=== PATIENT | female | born 1975 | race African-American/Black ===

== ENCOUNTER 2017-06-16 00:26 | Emergency (ER) | payer OTHER ==
[2017-06-16] MEDS ORDERED: Ibuprofen 800 MG TAB ONE (01:54)
[2017-06-16] MEDS ORDERED: Acetaminophen 500 MG TAB ONE (03:19)
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
== END 2017-06-16 03:23 | disposition home or self-care (01) ==
LOC: ERS 00:26
DX: T76.11XA Adult physical abuse, suspected, initial encounter (principal); S82.832A Other fracture of upper and lower end of left fibula, initial encounter for closed fracture; I10 Essential (primary) hypertension; M32.9 Systemic lupus erythematosus, unspecified; M06.9 Rheumatoid arthritis, unspecified; F31.9 Bipolar disorder, unspecified; Z79.899 Other long term (current) drug therapy; Y04.2XXA Assault by strike against or bumped into by another person, initial encounter
CPT/HCPCS: 27786; 71045

== ENCOUNTER 2017-06-23 16:32 | Inpatient (IN) | payer OTHER ==
[~2017-06-23 16:32] MED LIST: ISOVUE-370 76%-LOCM 1 ML ONE
[2017-06-23] MEDS ORDERED: Morphine 4 MG/ML VIAL ONE ×2 (17:57→22:39)
[2017-06-23] MEDS ORDERED: Ondansetron HCl/PF 4 MG/2 ML Vial ONE (18:14)
[2017-06-23 18:25] LABS: #Eosinphils 0.1 thou/uL (0.0-0.7); #Lymphocytes 1.1 thou/uL (1.20-3.40); #Monocytes 0.5 thou/uL (0.11-0.59); #Neutrophils 9.5 thou/uL (1.40-6.50); %Basophils 0.4 % (0.0-1.0); %Eosinophils 0.6 % (0.0-10.0); %Lymphocytes 9.8 % (21.0-51.0); %Monocytes 4.4 % (0.0-10.0); %Neutrophils 84.7 % (42.0-75.0); Hemoglobin 11.8 g/dL (12.0-16.0); Mean Corpuscular HGB CONC 33.9 g/dL (32.0-36.0); Mean Corpuscular Hemoglobin 30.5 pg (27.0-31.0); Mean Corpuscular Volume 89.9 fl (81.0-99.0); Mean Platelet Volume 7.4 fL (7.4-10.4); Platelet Count 335 thou/uL (130-400); RBC Distribution Width 12.4 % (11.5-14.5); Red Blood Cell (RBC) Count 3.87 mill/uL (4.20-5.40); White Blood Cell (WBC) Count 11.2 thou/uL (4.8-10.8)
--- NOTE | 2017-06-23 18:34 | RAD ---
PORTABLE CHEST: 06/23/17 HISTORY: Chest pain. COMPARISON: 06/16/17. Some possible patchy infiltrate in the right lung base on this current study. This could represent at electasis. The lungs otherwise appears clear and unchanged. IMPRESSION: Question right lower lobe atelectasis or infiltrate. POS: [facility]
--- NOTE | 2017-06-23 18:40 | RAD ---
RIGHT FOOT: 06/23/17 Three views. HISTORY: Toe pain. Injury. Tarsals appear unremarkable. There is cortical thickening involving the shaft of the third metatarsal consistent with an old healed fracture. No acute metatarsal fracture identified. Phalanges appear in tact with no evidence of acute fracture. IMPRESSION: No acute fracture identified. POS: [facility]
[2017-06-23 18:47] LABS: ALT (SGPT) 21 U/L (8-55); AST (SGOT) 38 U/L (5-34); Alkaline Phosphatase 86 U/L (40-150); Anion Gap 13 mmol/L (10-20); BUN (Urea Nitrogen) 8 mg/dL (7.0-18.7); Bilirubin, Total 0.4 mg/dL (0.2-1.2); CK (CPK) 614 U/L (29-168); Calc. Creatinine Clearance 0 mL/min (70-130); Calcium 9.5 mg/dL (7.8-10.44); Carbon Dioxide 24 mmol/L (22-29); Chloride 98 mmol/L (98-107); Estimated GFR-MDRD Greater than 90; Globulin 3.7 g/dL (2.4-3.5); Glucose 107 mg/dL (70-105); Potassium 3.8 mmol/L (3.5-5.1); Protein, Total 7.7 g/dL (6.0-8.3); Sodium 131 mmol/L (136-145)
[2017-06-23 18:52] LABS: CKMB 4.9 ng/mL (0-6.6); Troponin I Less than 0.010 ng/mL (< 0.028)
[2017-06-23 18:59] LABS: Bilirubin Negative (Negative); Blood, Urine Small (Negative); Clarity CLOUDY (Clear); Glucose, Urine (Dipstick) Negative (Negative); Leukocyte Negative (Negative); Nitrite Negative (Negative); Protein, Urine (Dipstick) Negative (Neg-Trace); Specific Gravity, Urine 1.015 (1.002-1.036); pH, Urine 6.5 (5.0-9.0)
[2017-06-23 19:01] LABS: Bacteria/HPF None Seen HPF (None Seen); Hyaline Casts/LPF 0-3 HYALINE CAST LPF (0-3 Hyaline); RBC/HPF 0-3 HPF (0-3); Squamous Epithelial 0-3 HPF (0-3); WBC/HPF 0-3 HPF (0-3)
[2017-06-23] MEDS ORDERED: Ketorolac Tromethamine 30 MG/ML VIAL ONE (19:51)
[2017-06-23 20:02] LABS: Pregnancy Test - Urine (BHCG) Negative (Negative); Pregu Control Background? CLEAR/WHITE (CLR/WHITE); Pregu Control Bar Appear? YES (CONTROL BAR); Specific Gravity 1.015 (1.002-1.036)
--- NOTE | 2017-06-23 20:59 | CT ---
CT PULMONARY ANGIO CHEST WITH CONTRAST: 06/23/17 Multiple axial tomograms obtained through chest with IV enhancement with pulmonary angio protocol. Mu ltiplanar reconstructions with 3D postprocessing. HISTORY: Chest pain. FINDINGS: Pulmonary arteries show adequate enhancement. There is evidence of a small linear filling defect in a proximal left lower lobe pulmonary artery as the left descending pulmonary artery branches inferiorl y. I cannot exclude small pulmonary embolus at this site. No other evidence of pulmonary embolus identified. Review of the lung lynn reveals patchy alveolar infiltrate in the posterior right lower lobe sugges ting patchy pneumonia. There is also some early infiltrative changes in the left lower lobe. IMPRESSION: 1. Evidence of a small pulmonary embolus in a proximal left lower lobe pulmonary artery. 2. Patchy infiltrate suggesting pneumonia in the posterior right lower lobe. Possibly early infi ltrate in the left lower lobe. Findings discussed with Dr. Man. POS: [facility]
[2017-06-23] MEDS ORDERED: Azithromycin 500 MG VIAL ONE (21:26)
[2017-06-23] MEDS ORDERED: Enoxaparin Sodium 100 MG/ML SYRINGE ONE (21:26)
[2017-06-23] MEDS ORDERED: cefTRIAXone\\ROCEPHIN 2 GM in Sodium Chloride 0.9% 100 ML IVPB SCH (23:00)
[2017-06-24] MEDS ORDERED: Acetaminophen 325 MG TAB PO PRN (00:57)
[2017-06-24] MEDS ORDERED: Senokot 8.6 MG TAB PO PRN (00:57)
[2017-06-24] MEDS ORDERED: Docusate 100 MG CAP PO PRN (00:57)
[2017-06-24] MEDS ORDERED: Sodium Chloride 0.9% 1,000 ML IV SCH (01:15)
[2017-06-24] MEDS ORDERED: Sodium Chloride 0.45% 1,000 ML IV SCH (01:15)
[2017-06-24 01:39] VITALS: BMI 48.2
[2017-06-24] MEDS ORDERED: Morphine 5 MG/ML SYRINGE SLOW IVP PRN (01:58)
[2017-06-24] MEDS: Sodium Chloride 0.9% 1,000 ML IV SCH ×2 (02:07→11:22)
--- NOTE | 2017-06-24 02:47 | PDOC.FPRHP ---
- History of Present Illness Chief Complaint: Chest pain History of Present Illness: 42 yo f with a pmhx of htn, hld presents with sharp substernal and left sided chest pain. She states that it is constant and 9/10 in nature. She endorses associated nausea. States she has this chest pain while walking to her dr's apt yesterday afternoon. She also had this pain during her doctor's apt and was sent via EMS to the hospital. The pain does not radiate. It is substernal and left sided in nature. No associated diaphoresis. She also endorses a cough with productive yellow sputum and difficulty breathing. She endorses feeling feverish at home but didn't check her temp. She was given aspirin by EMS. ED Course: She was given: ceftriaxone 1mg, a total of 12mg of morphine, lovenox 1mg/kg, azithromicin 500mg, zofran 4mg, and ketorlac 30mg. - Allergies/Adverse Reactions Allergies Allergy/AdvReac Type Severity Reaction Status Date / Time Sulfa (Sulfonamide Allergy Verified 06/24/17 00:16 Antibiotics) sulfamethoxazole Allergy Verified 06/24/17 00:16 [From Bactrim] trimethoprim [From Bactrim] Allergy Verified 06/24/17 00:16 - Home Medications Medication Instructions Recorded Confirmed Type Acetaminophen With Codeine 1 tab PO Q4HR 06/24/17 06/24/17 History [Tylenol with Codeine #3 Tablet] Acyclovir 400 mg PO BID 06/24/17 06/24/17 History Ergocalciferol (Vitamin D2) 50,000 unit PO Q7DAYS 06/24/17 06/24/17 History [Vitamin D2] Esomeprazole Magnesium [NexIUM] 1 tab PO DAILY 06/24/17 06/24/17 History Hydroxychloroquine Sulfate 1 tab PO BID 06/24/17 06/24/17 History Levothyroxine [Synthroid] 175 mcg PO DAILY 06/24/17 06/24/17 History QUEtiapine Fumarate [SEROquel] 600 mg PO HS 06/24/17 06/24/17 History Sertraline HCl [Zoloft] 1 tab PO DAILY 06/24/17 06/24/17 History - History PMHx:HTN, Lupus, RA, Bipolar d/o PSHx: CSx3 FHx:noncontributory Social:denies smoking, alcohol, and drug use - Review of Systems General: reports: fever/chills. denies: weight/appetite/sleep changes, night sweats Eyes: denies: eye pain, vision changes ENT: denies: nasal congestion Respiratory: reports: cough, congestion, shortness of breath Cardiovascular: reports: chest pain. denies: palpitation, edema, orthopnea Gastrointestinal: reports: nausea. denies: vomiting, diarrhea Genitourinary: denies: incontinence, dysuria Skin: denies: rashes, lesions Musculoskeletal: reports: pain, tenderness Neurological: denies: numbness, syncope Psychological: denies: anxiety, depression - Vital signs BP: [166/82] HR: [100-110] RR: [22] Tmax: [100.5] Pox: [97]% on [RA] Wt: [ 110kg] - Physical Exam Constitutional: awake, alert and oriented, well developed HEENT: normocephalic and atraumatic, PERRLA, EOMI, conjunctiva clear, no scleral icterus, TM's clear and intact, grossly normal hearing, normal nasal mucosa, MMM Neck: supple, trachea midline, no LAD, no thyromegaly Chest: other (tender to palpation of left chest; chest pain reproducible) Heart: RRR, normal S1/S2, no murmurs/rubs/gallops, no edema Lungs: other (decreased breath sounds bilaterally) Abdomen: soft, non-tender, bowel sounds present (hypoactive bowel sounds), other (obese) Musculoskeletal: normal structure, normal tone Neurological: no focal deficit Skin: no rash/lesions Heme/Lymphatic: no unusual bruising or bleeding, no purpura, no petechia Psychiatric: normal mood and affect FMR H&P: Results - Labs Result Diagrams: 06/23/17 18:05 06/23/17 18:05 Lab results: WBC 11.2 thou/uL (4.8-10.8) H 06/23/17 18:05 Hgb 11.8 g/dL (12.0-16.0) L 06/23/17 18:05 Hct 34.8 % (36.0-47.0) L 06/23/17 18:05 MCV 89.9 fl (81.0-99.0) 06/23/17 18:05 Plt Count 335 thou/uL (130-400) 06/23/17 18:05 Neutrophils % 84.7 % (42.0-75.0) H 06/23/17 18:05 ESR Westergren 19 mm/hr (Less than 20) 06/23/17 18:05 Sodium 131 mmol/L (136-145) L 06/23/17 18:05 Potassium 3.8 mmol/L (3.5-5.1) 06/23/17 18:05 Chloride 98 mmol/L (98-107) 06/23/17 18:05 Carbon Dioxide 24 mmol/L (22-29) 06/23/17 18:05 BUN 8 mg/dL (7.0-18.7) 06/23/17 18:05 Creatinine 0.75 mg/dL (0.6-1.1) 06/23/17 18:05 Glucose 107 mg/dL (70-105) H 06/23/17 18:05 Lactic Acid 1.0 mmol/L (0.5-2.2) 06/24/17 01:00 Calcium 9.5 mg/dL (7.8-10.44) 06/23/17 18:05 Total Bilirubin 0.4 mg/dL (0.2-1.2) 06/23/17 18:05 AST 38 U/L (5-34) H 06/23/17 18:05 ALT 21 U/L (8-55) 06/23/17 18:05 Alkaline Phosphatase 86 U/L (40-150) 06/23/17 18:05 Creatine Kinase 614 U/L (29-168) H 06/23/17 18:05 CK-MB (CK-2) 4.9 ng/mL (0-6.6) 06/23/17 18:05 C-Reactive Protein 3.40 mg/dL (= or < 0.5) H 06/23/17 18:05 Serum Total Protein 7.7 g/dL (6.0-8.3) 06/23/17 18:05 Albumin 4.0 g/dL (3.5-5.0) 06/23/17 18:05 Urine Ketones Negative mg/dL (Negative) 06/23/17 18:50 Urine Blood Small (Negative) H 06/23/17 18:50 Urine Nitrite Negative (Negative) 06/23/17 18:50 Ur Leukocyte Esterase Negative (Negative) 06/23/17 18:50 Urine RBC 0-3 HPF (0-3) 06/23/17 18:50 Urine WBC 0-3 HPF (0-3) 06/23/17 18:50 Ur Squamous Epith Cells 0-3 HPF (0-3) 06/23/17 18:50 Urine Bacteria None Seen HPF (None Seen) 06/23/17 18:50 - EKG Interpretation EKG: sinus tachycardia - Radiology Interpretation Chest x-ray Status: image reviewed by me, report reviewed by me Additional comment: right LL infiltrate vs atelectasis CT scan - chest Status: report reviewed by me Additional comment: left pulmonary embolism FMR H&P: A/P - Problem List (1) Sepsis Current Visit: Yes Status: Acute Code(s): A41.9 - SEPSIS, UNSPECIFIED ORGANISM (2) CAP (community acquired pneumonia) Current Visit: Yes Status: Acute Code(s): J18.9 - PNEUMONIA, UNSPECIFIED ORGANISM (3) Pulmonary embolism Current Visit: Yes Status: Acute Code(s): I26.99 - OTHER PULMONARY EMBOLISM WITHOUT ACUTE COR PULMONALE (4) Hyponatremia Current Visit: Yes Status: Acute Code(s): E87.1 - HYPO-OSMOLALITY AND HYPONATREMIA (5) Tibial fracture Current Visit: Yes Status: Acute Code(s): S82.209A - UNSP FRACTURE OF SHAFT OF UNSP TIBIA, INIT FOR CLOS FX (6) HTN (hypertension) Current Visit: Yes Status: Acute Code(s): I10 - ESSENTIAL (PRIMARY) HYPERTENSION (7) HLD (hyperlipidemia) Current Visit: Yes Status: Acute Code(s): E78.5 - HYPERLIPIDEMIA, UNSPECIFIED (8) Lactic acid acidosis Current Visit: Yes Status: Acute Code(s): E87.2 - ACIDOSIS (9) Atypical chest pain Current Visit: Yes Status: Acute Code(s): R07.89 - OTHER CHEST PAIN (10) Acute costochondritis Current Visit: Yes Status: Acute Code(s): M94.0 - CHONDROCOSTAL JUNCTION SYNDROME [TIETZE] (11) Bipolar disorder Current Visit: Yes Status: Acute Code(s): F31.9 - BIPOLAR DISORDER, UNSPECIFIED (12) Hematuria Current Visit: Yes Status: Acute Code(s): R31.9 - HEMATURIA, UNSPECIFIED (13) Lupus Current Visit: Yes Status: Acute Code(s): L93.0 - DISCOID LUPUS ERYTHEMATOSUS (14) Rheumatoid arthritis Current Visit: Yes Status: Acute Code(s): M06.9 - RHEUMATOID ARTHRITIS, UNSPECIFIED - Plan Disposition/LOS: 42 yo f with a pmhx of htn, RA, and bipolar d/o presents with chest pain admitted for atypical chest pain, CAP, and a left pulmonary embolism. 1) Sepsis 2/2 CAP - Pt has a RLL infiltrate vs atelectasis. She has been febrile while here, tachycardic, with a mild leukocytosis. We will start Azithromycin and Rocephin. We will provide a 30mg/kg bolus of fluids. We also ordered a flu swab. 2) Pulmonary Embolism - Pt has been tachycardic in the 110s, was found to have a left pulm artery PE, and was started on theraputic lovenox. 3.)Atypical chest pain-pain reproducible on exam which suggest costochondritis in etiology. We will provide toradol scheduled q6hrs for pain. We will also trend her troponins and recheck an EKG if the pain persists. We also ordered a lipase to rule out pancreatitis. 3) Lactic Acidosis - Gave the pt a 30mg/kg fluid bolus and started her on maintenance fluids. F/u with repeat in the am. 4) Hematuria - patient on period. f/u outpatient with repeat UA. 5) Fracture LE tibia - Pt was recently seen here in the ER for a fall. She was found to have a LLE tibial fracture and was told to follow up with an orthopedic surgeon upon discharge. She stated that she needs a referral and hasn 't been able to get one yet because she started having chest pain today. We will f/u with XR of LLE to evaluate for good healing and consider casting. Recommend outpatient follow-up. 6) Hyponatremia - likely 2/2 dehydration F/u with BMP in am. 7) Lupus - continue home medications 8) HTN - continue home medications 9) RA - continue home medications 10) Bipolar - continue home medication FMR H&P: Upper Level - Plan Date/Time: 06/24/17 0236 I, Liz Alcaraz DO, have evaluated this patient and agree with findings/plan as outlined by internal grinder set up operator resident. Pertinent changes/additions are listed here. This is a 42 yo AAF w/ PMH of Lupus, HTN, RA, Bipolar, Depression, presents w/ chest pain that started today and fever, as well as difficulty breathing. Never had this pain before. In the ER she was found to have a pulmonary embolism, as well as a pneumonia and was started on lovenox and antibiotics. PE: Gen: AOx4. In no acute distress. CV: RRR. No murmurs. Reproducible tenderness to palpation of chest Lungs: Diffuse crackles throughout, diminished effort Ext: LLE splint. No edema RLE. A/P: 1) CAP - will start Azithromycin and Rocephin. Fluids. Flu swab. 2) Pulmonary Embolism - Lovenox Therapeutic. 3) Lactic Acidosis - Fluids. F/u with repeat in the am. 4) Hematuria - patient on period. f/u outpatient with repeat UA. 5) Costochondritis - NASIDs 6) Lupus - continue home medications 7) HTN - continue home medications 8) RA - continue home medications 9) Depression - continue home medications 10) Bipolar - continue home medication 11) Fracture LE tibia - f/u with XR of LLE and consider casting. 12) Hyponatremia - likely 2/2 dehydration F/u with BMP in am.
[2017-06-24] MEDS ORDERED: Ketorolac Tromethamine 30 MG/ML VIAL IVP SCH (03:31)
[2017-06-24 05:26] LABS: #Basophils 0.1 thou/uL (0.0-0.2); #Monocytes 0.6 thou/uL (0.11-0.59); #Neutrophils 7.1 thou/uL (1.40-6.50); %Basophils 0.6 % (0.0-1.0); %Eosinophils 0.5 % (0.0-10.0); %Lymphocytes 20.3 % (21.0-51.0); %Monocytes 5.7 % (0.0-10.0); %Neutrophils 72.9 % (42.0-75.0); Mean Corpuscular HGB CONC 33.8 g/dL (32.0-36.0); Mean Corpuscular Hemoglobin 30.6 pg (27.0-31.0); Mean Corpuscular Volume 90.6 fl (81.0-99.0); Mean Platelet Volume 7.1 fL (7.4-10.4); Platelet Count 302 thou/uL (130-400); RBC Distribution Width 12.7 % (11.5-14.5); White Blood Cell (WBC) Count 9.7 thou/uL (4.8-10.8)
[2017-06-24 05:45] LABS: Troponin I 0.011 ng/mL (< 0.028)
[2017-06-24 05:49] LABS: Anion Gap 13 mmol/L (10-20); BUN (Urea Nitrogen) 9 mg/dL (7.0-18.7); Calc. Creatinine Clearance 170 mL/min (70-130); Calcium 8.4 mg/dL (7.8-10.44); Carbon Dioxide 22 mmol/L (22-29); Chloride 102 mmol/L (98-107); Estimated GFR-MDRD Greater than 90; Glucose 94 mg/dL (70-105); Potassium 3.4 mmol/L (3.5-5.1); Sodium 134 mmol/L (136-145)
[2017-06-24] MEDS: Ketorolac Tromethamine 30 MG/ML VIAL IVP SCH ×4 (06:38→23:57)
[2017-06-24] MEDS: Levothyroxine 175 MCG TAB PO SCH (06:40)
--- NOTE | 2017-06-24 07:36 | RAD ---
LEFT TIBIA AND FIBULA 2 VIEWS: Date: 06/24/17 HISTORY: 42-year-old female with history of recent fracture. FINDINGS: Splint material stabilizes the lower leg. Again noted is a slightly comminuted, essentially nondispla yadira fracture of the distal fibula, primarily the metadiaphysis region. No significant malalignment. IMPRESSION: Stable, essentially nondisplaced, comminuted distal fibular fracture, unchanged from 06/16/17. POS: [facility]
[2017-06-24 08:07] LABS: Troponin I Less than 0.010 ng/mL (< 0.028)
[2017-06-24] MEDS ORDERED: Amlodipine 5 MG TAB PO SCH (08:15)
[2017-06-24] MEDS ORDERED: Potassium Chloride 20 MEQ TAB PO SCH (08:15)
[2017-06-24] MEDS ORDERED: Ergocalciferol 1.25 MG(50,000 UNITS) CAP PO SCH (09:00)
[2017-06-24] MEDS ORDERED: ESOMEPRAZOLE MAGNESIUM PO SCH (09:00)
[2017-06-24] MEDS ORDERED: Prevnar 13-Val Conj/PF 0.5 ML SYRINGE IM ONE (09:00)
[2017-06-24] MEDS: Hydroxychloroquine Sulfate 200 MG TAB PO SCH ×2 (09:12→20:26)
[2017-06-24] MEDS: Enoxaparin Sodium 120 MG/0.8 ML SYRINGE SC SCH ×2 (09:12→20:28)
[2017-06-24] MEDS: Acetaminophen/Codeine 30-300mg Tablet PO PRN ×3 (09:12→20:27)
[2017-06-24] MEDS: Ondansetron ODT 4 MG TAB PO PRN ×2 (14:53→21:23)
[2017-06-24] MEDS: Azithromycin 500 MG in Sodium Chloride 0.9% 250 ML 250 ML IVPB SCH (20:26)
[2017-06-24] MEDS: cefTRIAXone\\ROCEPHIN 2 GM in Sodium Chloride 0.9% 100 ML IVPB SCH (23:56)
[2017-06-25] MEDS: Ondansetron ODT 4 MG TAB PO PRN ×3 (05:30→21:39)
[2017-06-25] MEDS: Ketorolac Tromethamine 30 MG/ML VIAL IVP SCH ×4 (05:30→23:42)
[2017-06-25] MEDS: Levothyroxine 175 MCG TAB PO SCH (05:30)
[2017-06-25 05:39] LABS: #Basophils 0.1 thou/uL (0.0-0.2); #Eosinphils 0.1 thou/uL (0.0-0.7); #Lymphocytes 2.2 thou/uL (1.20-3.40); #Monocytes 0.4 thou/uL (0.11-0.59); #Neutrophils 5.9 thou/uL (1.40-6.50); %Basophils 0.7 % (0.0-1.0); %Eosinophils 1.3 % (0.0-10.0); %Lymphocytes 25.4 % (21.0-51.0); %Monocytes 4.7 % (0.0-10.0); %Neutrophils 67.8 % (42.0-75.0); Hemoglobin 10.7 g/dL (12.0-16.0); Mean Corpuscular HGB CONC 32.1 g/dL (32.0-36.0); Mean Corpuscular Hemoglobin 29.5 pg (27.0-31.0); Mean Corpuscular Volume 91.8 fl (81.0-99.0); Mean Platelet Volume 7.3 fL (7.4-10.4); Platelet Count 294 thou/uL (130-400); RBC Distribution Width 12.8 % (11.5-14.5); Red Blood Cell (RBC) Count 3.62 mill/uL (4.20-5.40); White Blood Cell (WBC) Count 8.6 thou/uL (4.8-10.8)
[2017-06-25 05:45] LABS: Anion Gap 11 mmol/L (10-20); BUN (Urea Nitrogen) 8 mg/dL (7.0-18.7); Calc. Creatinine Clearance 164 mL/min (70-130); Calcium 8.8 mg/dL (7.8-10.44); Carbon Dioxide 25 mmol/L (22-29); Chloride 104 mmol/L (98-107); Estimated GFR-MDRD Greater than 90; Glucose 103 mg/dL (70-105); Potassium 4.1 mmol/L (3.5-5.1); Sodium 136 mmol/L (136-145)
--- NOTE | 2017-06-25 06:14 | PDOC.FM ---
- Subjective Subjective: Patient complains of recurrent fevers overnight. She denies sob, but she does note the same pain in her chest and in her left leg. She denies n/v/d. She does admit to a cough. She has no other complaints this morning. - Objective Vital Signs & Weight: Vital Signs (12 hours) Temp Pulse Resp BP Pulse Ox 06/25/17 03:41 100.1 F H 110 H 20 147/69 H 95 06/24/17 23:52 100.9 F H 109 H 16 130/67 95 06/24/17 20:15 99.3 F 95 16 95 06/24/17 20:00 99.3 F 95 20 176/116 H 96 Result Diagrams: 06/25/17 04:44 06/25/17 04:44 <Alexey Sanchez - Last Filed: 06/25/17 08:31> - Objective Vital Signs & Weight: Vital Signs (12 hours) Temp Pulse Resp BP Pulse Ox 06/25/17 08:37 100 06/25/17 08:00 100 F H 100 18 92 L 06/25/17 07:30 100 F H 100 18 148/81 H 92 L 06/25/17 06:37 99.9 F H 06/25/17 03:41 100.1 F H 110 H 20 147/69 H 95 06/24/17 23:52 100.9 F H 109 H 16 130/67 95 Result Diagrams: 06/25/17 04:44 06/25/17 04:44 <Lance Loo - Last Filed: 06/25/17 11:15> Phys Exam - Physical Examination HEENT: moist MMs Neck: no nodes Respiratory: no wheezing, clear to auscultation bilateral Cardiovascular: RRR, no significant murmur Gastrointestinal: soft, non-tender, no distention, positive bowel sounds Musculoskeletal: no edema, pulses present No erythema or edema over fracture Neurological: non-focal, normal sensation, moves all 4 limbs Psychiatric: normal affect, A&O x 3 Skin: no rash <Alexey Sanchez - Last Filed: 06/25/17 08:31> Dx/Plan (1) Sepsis Code(s): A41.9 - SEPSIS, UNSPECIFIED ORGANISM Status: Acute (2) Atypical chest pain Code(s): R07.89 - OTHER CHEST PAIN Status: Acute (3) CAP (community acquired pneumonia) Code(s): J18.9 - PNEUMONIA, UNSPECIFIED ORGANISM Status: Acute (4) HLD (hyperlipidemia) Code(s): E78.5 - HYPERLIPIDEMIA, UNSPECIFIED Status: Acute (5) HTN (hypertension) Code(s): I10 - ESSENTIAL (PRIMARY) HYPERTENSION Status: Acute (6) Pulmonary embolism Code(s): I26.99 - OTHER PULMONARY EMBOLISM WITHOUT ACUTE COR PULMONALE Status : Acute (7) Tibial fracture Code(s): S82.209A - UNSP FRACTURE OF SHAFT OF UNSP TIBIA, INIT FOR CLOS FX Status: Acute (8) Acute costochondritis Code(s): M94.0 - CHONDROCOSTAL JUNCTION SYNDROME [TIETZE] Status: Acute (9) Bipolar disorder Code(s): F31.9 - BIPOLAR DISORDER, UNSPECIFIED Status: Acute (10) Lupus Code(s): L93.0 - DISCOID LUPUS ERYTHEMATOSUS Status: Acute (11) Rheumatoid arthritis Code(s): M06.9 - RHEUMATOID ARTHRITIS, UNSPECIFIED Status: Acute - Plan Plan: 1. Sepsis 2/2 CAP - Pt has a RLL infiltrate vs atelectasis. - Febrile to 100.9 - Continue antibiotics 2. Pulmonary Embolism - Case management consult for Eliquis coverage - Transitioned to Eliquis today. 3. Atypical chest pain -Troponins trended and negative - Repeat EKG if reoccurs 4. Lactic Acidosis - Resolved 5. Fracture LE tibia - ortho consult for casting, appreciate recs - Non weight bearing of Left leg. - Defer to Ortho recs 6. Hyponatremia - likely 2/2 dehydration - Resolved 7. Lupus - continue home medications 8. HTN - continue home medications 9. RA - continue home medications 10. Bipolar - continue home medication Disposition: Stable. Will continue antibiotics. Will plan for discharge if afebrile for 24 hours. <Alexey Sanchez - Last Filed: 06/25/17 08:31> Attending Addendum - Attending Addendum Date/Time: 06/25/17 1114 I personally evaluated the patient and discussed the management with Dr. Sanchez I agree with the History, Examination, Assessment and Plan documented above with any addition or exceptions noted below. Low grade fever noted continue with productive cough responding to treatment. patient for casting today and start PT crutch training etc. <Lance Loo - Last Filed: 06/25/17 11:15>
--- NOTE | 2017-06-25 08:31 | RAD ---
CHEST 1 VIEW: HISTORY: Fever. COMPARISON: 06/23/17. FINDINGS: Cardiac silhouette is magnified by projection. Shallow inspiration accentuates pulmonary markings. Patchy bilateral perihilar and bibasilar infiltrates are unchanged in appearance from the previous ex am. There has not been progression of the right basilar opacity. Mediastinum is midline. No eviden ce of pneumothorax. IMPRESSION: Mild patchy bibasilar infiltrates are stable. Pulmonary vascular congestion may be responsible, alth ough superimposed inflammation could be present. Please consider continued radiographic followup. POS: [facility]
[2017-06-25] MEDS: Amlodipine 5 MG TAB PO SCH (08:37)
[2017-06-25] MEDS: Acetaminophen/Codeine 30-300mg Tablet PO PRN (08:37)
[2017-06-25] MEDS: Hydroxychloroquine Sulfate 200 MG TAB PO SCH ×2 (08:37→20:43)
[2017-06-25] MEDS: Apixaban 5 MG TAB PO SCH ×2 (08:37→20:44)
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
[2017-06-25] MEDS: guaiFENesin 200 MG TAB PO PRN ×2 (16:03→20:44)
[2017-06-25] MEDS: Azithromycin 500 MG in Sodium Chloride 0.9% 250 ML 250 ML IVPB SCH (20:39)
[2017-06-25] MEDS: cefTRIAXone\\ROCEPHIN 2 GM in Sodium Chloride 0.9% 100 ML IVPB SCH (23:42)
[2017-06-26 04:59] LABS: #Eosinphils 0.1 thou/uL (0.0-0.7); #Lymphocytes 1.8 thou/uL (1.20-3.40); #Monocytes 0.4 thou/uL (0.11-0.59); #Neutrophils 4.6 thou/uL (1.40-6.50); %Basophils 0.2 % (0.0-1.0); %Eosinophils 1.1 % (0.0-10.0); %Lymphocytes 26.1 % (21.0-51.0); %Monocytes 6.4 % (0.0-10.0); %Neutrophils 66.3 % (42.0-75.0); Hemoglobin 10.8 g/dL (12.0-16.0); Mean Corpuscular HGB CONC 33.2 g/dL (32.0-36.0); Mean Corpuscular Hemoglobin 30.6 pg (27.0-31.0); Mean Platelet Volume 7.2 fL (7.4-10.4); Platelet Count 269 thou/uL (130-400); RBC Distribution Width 12.5 % (11.5-14.5); Red Blood Cell (RBC) Count 3.53 mill/uL (4.20-5.40)
[2017-06-26 05:21] LABS: Anion Gap 8 mmol/L (10-20); BUN (Urea Nitrogen) 6 mg/dL (7.0-18.7); Calc. Creatinine Clearance 175 mL/min (70-130); Calcium 9.1 mg/dL (7.8-10.44); Carbon Dioxide 29 mmol/L (22-29); Chloride 104 mmol/L (98-107); Estimated GFR-MDRD Greater than 90; Glucose 105 mg/dL (70-105); Potassium 4.1 mmol/L (3.5-5.1); Sodium 137 mmol/L (136-145)
[2017-06-26] MEDS: Ketorolac Tromethamine 30 MG/ML VIAL IVP SCH ×2 (05:37→12:09)
[2017-06-26] MEDS: guaiFENesin 200 MG TAB PO PRN ×2 (05:38→09:40)
[2017-06-26] MEDS: Levothyroxine 175 MCG TAB PO SCH (05:38)
--- NOTE | 2017-06-26 06:12 | PDOC.FM ---
- Subjective Subjective: Patient had a normal night. She had a her foot casted yesterday and is tolerating that well. She states her chest pain is still present and it is still reproducible. She states she has been coughing more with increased sputum production. She had no further fevers or chills. No n/v/d, or sob. No other complaints today. - Objective Vital Signs & Weight: Vital Signs (12 hours) Temp Pulse Resp BP Pulse Ox 06/26/17 04:42 99.7 F H 105 H 18 134/74 94 L 06/25/17 20:30 98.6 F 96 20 97 06/25/17 19:20 98.6 F 96 20 131/69 97 Result Diagrams: 06/26/17 04:39 06/26/17 04:39 <Alexey Sanchez - Last Filed: 06/26/17 08:04> - Objective Vital Signs & Weight: Vital Signs (12 hours) Temp Pulse Resp BP BP Pulse Ox 06/26/17 08:57 91 138/74 06/26/17 08:50 98.3 F 91 18 94 L 06/26/17 08:00 98.3 F 83 18 142/82 H 94 L 06/26/17 04:42 99.7 F H 105 H 18 134/74 94 L Result Diagrams: 06/26/17 04:39 06/26/17 04:39 <Lance Loo - Last Filed: 06/26/17 10:57> Phys Exam - Physical Examination HEENT: moist MMs Neck: no nodes Respiratory: no wheezing, clear to auscultation bilateral Cardiovascular: RRR, no significant murmur Gastrointestinal: soft, non-tender, no distention, positive bowel sounds Musculoskeletal: no edema Left short leg cast Neurological: moves all 4 limbs Psychiatric: normal affect, A&O x 3 Skin: no rash <Alexey Sanchez - Last Filed: 06/26/17 08:04> Dx/Plan (1) Sepsis Code(s): A41.9 - SEPSIS, UNSPECIFIED ORGANISM Status: Resolved (2) Atypical chest pain Code(s): R07.89 - OTHER CHEST PAIN Status: Acute (3) CAP (community acquired pneumonia) Code(s): J18.9 - PNEUMONIA, UNSPECIFIED ORGANISM Status: Acute (4) HLD (hyperlipidemia) Code(s): E78.5 - HYPERLIPIDEMIA, UNSPECIFIED Status: Acute (5) HTN (hypertension) Code(s): I10 - ESSENTIAL (PRIMARY) HYPERTENSION Status: Acute (6) Pulmonary embolism Code(s): I26.99 - OTHER PULMONARY EMBOLISM WITHOUT ACUTE COR PULMONALE Status : Acute (7) Tibial fracture Code(s): S82.209A - UNSP FRACTURE OF SHAFT OF UNSP TIBIA, INIT FOR CLOS FX Status: Acute (8) Acute costochondritis Code(s): M94.0 - CHONDROCOSTAL JUNCTION SYNDROME [TIETZE] Status: Acute (9) Bipolar disorder Code(s): F31.9 - BIPOLAR DISORDER, UNSPECIFIED Status: Acute (10) Lupus Code(s): L93.0 - DISCOID LUPUS ERYTHEMATOSUS Status: Acute (11) Rheumatoid arthritis Code(s): M06.9 - RHEUMATOID ARTHRITIS, UNSPECIFIED Status: Acute - Plan Plan: 1. Sepsis 2/2 CAP - Pt has a RLL infiltrate vs atelectasis. - Resolved - afebrile overnight - Transition to PO antibiotics 2. Pulmonary Embolism - Case management consult for Eliquis coverage - Transitioned to Eliquis 3. Atypical chest pain -Troponins trended and negative - Repeat EKG if reoccurs 4. Lactic Acidosis - Resolved 5. Fracture LE tibia - ortho consult for casting, appreciate recs - Casted, ortho follow up in 4 weeks - Non weight bearing 6. Hyponatremia - likely 2/2 dehydration - Resolved 7. Lupus - continue home medications 8. HTN - continue home medications 9. RA - continue home medications 10. Bipolar - continue home medication Disposition: Stable. Will continue antibiotics. Will plan for discharge. <Alexey Sanchez - Last Filed: 06/26/17 08:04> Attending Addendum - Attending Addendum Date/Time: 06/26/17 1053 I personally evaluated the patient and discussed the management with Dr. Sanchez I agree with the History, Examination, Assessment and Plan documented above with any addition or exceptions noted below.Patient is stable for dismissal will f/u Orthopedics and d/c home eliquis and Levaquin. Will rx for shower chair. <Lance Loo - Last Filed: 06/26/17 10:57>
[2017-06-26 08:24] VITALS: TEMP 98.3
[2017-06-26] MEDS: Apixaban 5 MG TAB PO SCH (08:55)
[2017-06-26] MEDS: Hydroxychloroquine Sulfate 200 MG TAB PO SCH (08:56)
[2017-06-26] MEDS: Amlodipine 5 MG TAB PO SCH (08:57)
[2017-06-26] MEDS: Acetaminophen/Codeine 30-300mg Tablet PO PRN (09:03)
[2017-06-26 11:36] VITALS: BP 126/71
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
--- NOTE | 2017-07-29 15:05 | EKG ---
Test Reason : CP Blood Pressure : / mmHG Vent. Rate : 108 BPM Atrial Rate : 108 BPM P-R Int : 128 ms QRS Dur : 074 ms QT Int : 320 ms P-R-T Axes : 062 030 081 degrees QTc Int : 428 ms Sinus tachycardia Possible Left atrial enlargement T wave abnormality, consider lateral ischemia Abnormal ECG Confirmed by STEFFEN DUNHAM ([id number]), managing editor JUAN CARLOS ROSA ([id number]) on 07/29/2017 3:04:47 PM Referred By: Confirmed By:STEFFEN DUNHAM
== END 2017-06-26 15:09 | disposition home or self-care (01) | DRG 871 ==
LOC: ERS 16:32 → 2SE 06-24 00:08
PROVIDERS: ADMIT Family Medicine; ATTEND Family Medicine
DX: A41.9 Sepsis, unspecified organism (principal); I26.99 Other pulmonary embolism without acute cor pulmonale; E87.2 Acidosis; J18.9 Pneumonia, unspecified organism; M32.9 Systemic lupus erythematosus, unspecified; E87.1 Hypo-osmolality and hyponatremia; S82.832D Other fracture of upper and lower end of left fibula, subsequent encounter for closed fracture with routine healing; Y09 Assault by unspecified means; E78.5 Hyperlipidemia, unspecified; M94.0 Chondrocostal junction syndrome [Tietze]; F31.9 Bipolar disorder, unspecified; M06.9 Rheumatoid arthritis, unspecified; I10 Essential (primary) hypertension; R31.9 Hematuria, unspecified; E86.0 Dehydration
CPT/HCPCS: 36415; 71045; 71275; 80048; 80053; 81003; 81015; 81025; 82306; 82553; 83605; 83690; 83880; 84443; 84484; 85025; 85379; 85652; 86140; 87040; 87086; 87804; 93005; 96365; 96367; 96372; 96375; 96376; J2270; A4216; J0456; J0696; J1650; J1885; J2405; J7050; Q0162

== ENCOUNTER 2017-07-02 22:10 | Emergency (ER) | payer OTHER ==
[2017-07-02] MEDS ORDERED: Ketorolac Tromethamine 30 MG/ML VIAL ONE (23:27)
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
== END 2017-07-03 00:34 | disposition home or self-care (01) ==
LOC: ERS 22:10
DX: M54.5 Low back pain (principal); M54.6 Pain in thoracic spine; I10 Essential (primary) hypertension; M32.9 Systemic lupus erythematosus, unspecified; M06.9 Rheumatoid arthritis, unspecified; F31.9 Bipolar disorder, unspecified; Z79.899 Other long term (current) drug therapy; V43.62XA Car passenger injured in collision with other type car in traffic accident, initial encounter
CPT/HCPCS: 72050; 72072; 72110; 93005; 96372; J1885

== ENCOUNTER 2017-11-13 15:52 | Observation (INO) | payer OTHER ==
[2017-11-13] MEDS ORDERED: Acetaminophen 500 MG TAB ONE (16:43)
[2017-11-13] MEDS ORDERED: Ondansetron HCl/PF 4 MG/2 ML Vial ONE (16:43)
[2017-11-13 16:51] LABS: #Eosinphils 0.1 thou/uL (0.0-0.7); #Lymphocytes 1.9 thou/uL (1.20-3.40); #Monocytes 0.7 thou/uL (0.11-0.59); #Neutrophils 14.6 thou/uL (1.40-6.50); %Basophils 0.2 % (0.0-1.0); %Eosinophils 0.4 % (0.0-10.0); %Lymphocytes 10.9 % (21.0-51.0); %Monocytes 4.2 % (0.0-10.0); %Neutrophils 84.3 % (42.0-75.0); Hemoglobin 11.9 g/dL (12.0-16.0); Mean Corpuscular HGB CONC 34.7 g/dL (32.0-36.0); Mean Corpuscular Volume 89.4 fL (78.0-98.0); Mean Platelet Volume 7.6 fL (7.4-10.4); Platelet Count 312 thou/uL (130-400); RBC Distribution Width 13.6 % (11.5-14.5); Red Blood Cell (RBC) Count 3.83 mill/uL (4.20-5.40); White Blood Cell (WBC) Count 17.4 thou/uL (4.8-10.8)
[2017-11-13 16:55] LABS: BHCG - Serum Negative (NEGATIVE); Pregs Control Background? CLEAR/WHITE (CLR/WHITE); Pregs Control Bar Appear? YES (CONTROL BAR)
--- NOTE | 2017-11-13 17:05 | RAD ---
CHEST 1 VIEW: Date: 11/13/17 COMPARISON: 06/25/17. HISTORY: Dyspnea. FINDINGS: Normal cardiac silhouette. Pulmonary vessels and hilum are normal. Costophrenic angles are clear. No consolidation or mass. No pneumothorax or osseous abnormalities. IMPRESSION: No acute cardiopulmonary process. POS: [facility]
[2017-11-13 17:11] LABS: CKMB 1.5 ng/mL (0-6.6); Troponin I Less than 0.010 ng/mL (< 0.028)
[2017-11-13 17:17] LABS: ALT (SGPT) 12 U/L (8-55); AST (SGOT) 15 U/L (5-34); Albumin 3.9 g/dL (3.5-5.0); Alkaline Phosphatase 79 U/L (40-150); Anion Gap 11 mmol/L (10-20); BUN (Urea Nitrogen) 4 mg/dL (7.0-18.7); Bilirubin, Total 0.6 mg/dL (0.2-1.2); CK (CPK) 126 U/L (29-168); Calc. Creatinine Clearance 0 mL/min (70-130); Carbon Dioxide 23 mmol/L (22-29); Chloride 106 mmol/L (98-107); Estimated GFR-MDRD Greater than 90; Globulin 2.9 g/dL (2.4-3.5); Glucose 82 mg/dL (70-105); Potassium 3.2 mmol/L (3.5-5.1); Protein, Total 6.8 g/dL (6.0-8.3); Sodium 137 mmol/L (136-145)
[2017-11-13] MEDS ORDERED: Piperacillin/Tazobactam 4.5 GM VIAL ONE (17:23)
[2017-11-13 17:26] LABS: INR-International Normal Ratio 1.1; Prothrombin Time 13.9 SEC (12.0-14.7)
[2017-11-13 17:27] LABS: PTT 31.4 SEC (22.9-36.1)
--- NOTE | 2017-11-13 17:39 | CT ---
CTA CHEST WITH 3D VOLUME RENDERING 11/13/17 COMPARISON: 06/23/17 INDICATION: Cough, Chest pain. FINDINGS: There is no evidence of a significant filling defect of the contrast opacified pulmonary arterial sys tem. Thoracic aorta is of normal caliber. Mild subpleural patchy densities may relate to mild volume loss. There is no pleural fluid or pneumothorax. Nonspecific mild mural prominence of the underdisten ded esophagus is incidentally noted. With regard to the prior tiny filling defect of segmental branch serving left lower lobe, there is ca lcification and mild heterogeneity in this region which may relate to sequela from chronic pulmonary embolus. IMPRESSION: 1. No acute, large central pulmonary embolus. 2. Mild calcification/heterogeneity at site of prior tiny embolus at the left lower lobe segment al level which may relate to chronic residua. POS: [facility]
[2017-11-13 18:23] LABS: Bilirubin Negative (Negative); Blood, Urine Negative (Negative); Clarity CLEAR (Clear); Glucose, Urine (Dipstick) Negative (Negative); Leukocyte Negative (Negative); Nitrite Negative (Negative); Protein, Urine (Dipstick) Negative (Neg-Trace); Specific Gravity, Urine 1.023 (1.002-1.036); pH, Urine 7.5 (5.0-9.0)
--- NOTE | 2017-11-13 20:43 | PDOC.FPRHP ---
- History of Present Illness Chief Complaint: Cough, n/v, diarrhea, fever History of Present Illness: 42 yo AAF with PMH of lupus (on plaquenil) presented to ED with complaints of cough, n/v/d, headache, for four days. She reported HARRIS, dizziness, red tinged sputum and blood-tinged vomitus. She denies any hx of COPD or asthma. Reports fever/chills, dcreased appetite, diaphoresis, chest pain with coughing, palpitations, nausea/vomiting/diarrhea, abdominal pain, and hx of depression. Pt denied GI bleeding or rashes. Pt denied sick contacts. Said she feels somewhat similar to her admission in June. She was admitted in June 2017 for pneumonia and PE. In ED, Pt's temp was 101.3, tachycardic, had leukocytosis. CXR showed no pneumonia. CTA showed no PE. Pt received 1 g vanc and zosyn. Was bolused with 2L of NS. - Allergies/Adverse Reactions Allergies Allergy/AdvReac Type Severity Reaction Status Date / Time Sulfa (Sulfonamide Allergy Verified 11/13/17 22:15 Antibiotics) sulfamethoxazole Allergy Verified 11/13/17 22:15 [From Bactrim] trimethoprim [From Bactrim] Allergy Verified 11/13/17 22:15 turkey Allergy Verified 11/13/17 22:15 - Home Medications Medication Instructions Recorded Confirmed Type Acetaminophen With Codeine 1 tab PO Q4HR 06/24/17 11/13/17 History [Tylenol with Codeine #3 Tablet] Acyclovir 400 mg PO BID 06/24/17 11/13/17 History Ergocalciferol (Vitamin D2) 50,000 unit PO Q7DAYS 06/24/17 11/13/17 History [Vitamin D2] Hydroxychloroquine Sulfate 1 tab PO BID 06/24/17 11/13/17 History Levothyroxine [Synthroid] 175 mcg PO DAILY 06/24/17 11/13/17 History Amlodipine [Norvasc] 5 mg PO DAILY #0 tab 06/26/17 11/13/17 Rx Apixaban [Eliquis] 10 mg PO BID #60 tab 06/26/17 11/13/17 Rx Levofloxacin [Levaquin] 750 mg PO 0600 #7 tab 06/26/17 11/13/17 Rx Pilocarpine HCl [Pilocarpine HCl] 1 tab PO BID 11/13/17 11/13/17 History Topiramate [Topiramate] 50 mg PO DAILY 11/13/17 11/13/17 History - History PMHx: lupus, RA, PE, HTN< depression, hypothyroid PSHx: 3 CS FHx: DM on son, paternal grandmother; denied cancer, denied thyroid disease Social: denied a/t/d, denied ill contacts - Review of Systems General: reports: fever/chills, weight/appetite/sleep changes (decreased appetite), night sweats ENT: reports: nasal congestion, rhinorrhea, other (sore throat) Respiratory: reports: cough, congestion, shortness of breath Cardiovascular: reports: chest pain, palpitation Gastrointestinal: reports: nausea, vomiting, diarrhea, abdominal pain. denies: GI bleeding Genitourinary: reports: polyuria. denies: dysuria Skin: denies: rashes Neurological: denies: numbness, weakness Psychological: reports: depression. denies: anxiety - Vital signs BP 139/84, P 94, R 18, Tmax 101.3, PO2 100% on RA. Current wt 100 kg - Physical Exam Constitutional: NAD, awake, alert and oriented, other HEENT: normocephalic and atraumatic, PERRLA, MMM Neck: supple, no LAD Heart: RRR, normal S1/S2, no murmurs/rubs/gallops, pulses present, no edema Lungs: CTAB, no respiratory distress, no rales/rhonchi, no retractions Abdomen: soft, non-tender, bowel sounds present, no masses/distention Musculoskeletal: normal structure, other (sensitive left ankle) Neurological: CN II-XII intact, normal sensation Skin: no rash/lesions, good turgor, capillary refill <2 seconds Psychiatric: intact recent and remote memory FMR H&P: Results - Labs Result Diagrams: 11/13/17 16:30 11/13/17 16:30 Lab results: WBC 17.4 thou/uL (4.8-10.8) H 11/13/17 16:30 Hgb 11.9 g/dL (12.0-16.0) L 11/13/17 16:30 Hct 34.3 % (36.0-47.0) L 11/13/17 16:30 MCV 89.4 fL (78.0-98.0) 11/13/17 16:30 Plt Count 312 thou/uL (130-400) 11/13/17 16:30 Neutrophils % 84.3 % (42.0-75.0) H 11/13/17 16:30 Sodium 137 mmol/L (136-145) 11/13/17 16:30 Potassium 3.2 mmol/L (3.5-5.1) L 11/13/17 16:30 Chloride 106 mmol/L (98-107) 11/13/17 16:30 Carbon Dioxide 23 mmol/L (22-29) 11/13/17 16:30 BUN 4 mg/dL (7.0-18.7) L 11/13/17 16:30 Creatinine 0.80 mg/dL (0.6-1.1) 11/13/17 16:30 Glucose 82 mg/dL (70-105) 11/13/17 16:30 Lactic Acid 1.7 mmol/L (0.5-2.2) 11/13/17 16:30 Calcium 9.0 mg/dL (7.8-10.44) 11/13/17 16:30 Total Bilirubin 0.6 mg/dL (0.2-1.2) 11/13/17 16:30 AST 15 U/L (5-34) 11/13/17 16:30 ALT 12 U/L (8-55) 11/13/17 16:30 Alkaline Phosphatase 79 U/L (40-150) 11/13/17 16:30 Creatine Kinase 126 U/L (29-168) 11/13/17 16:30 CK-MB (CK-2) 1.5 ng/mL (0-6.6) 11/13/17 16:30 B-Natriuretic Peptide 65.2 pg/mL (0-100) 11/13/17 16:30 Serum Total Protein 6.8 g/dL (6.0-8.3) 11/13/17 16:30 Albumin 3.9 g/dL (3.5-5.0) 11/13/17 16:30 Urine Ketones Negative mg/dL (Negative) 11/13/17 17:30 Urine Blood Negative (Negative) 11/13/17 17:30 Urine Nitrite Negative (Negative) 11/13/17 17:30 Ur Leukocyte Esterase Negative (Negative) 11/13/17 17:30 - Radiology Interpretation CT scan - abdomen Status: report reviewed by me (No pulmonary embolus. Mild calcification/ heterogenieity in location of prior tiny filling defect.) FMR H&P: A/P - Plan 42 yo AAF with PMH of lupus (on plaquenil) with SIRS of unknown source. SIRS of unknown source -WBC of 17.4, tachycardic, febrile; admitted to Medical observation - Blood cultures drawn, empiric vanc and zosyn started, PRN tylenol for pain/ fever - nl lactate - CXR wnl, CTA showed no PE - UA neg - Pending: Procalcitonin, urine antigen for legionella and strep pneumo, stool cultures, fecal lactoferrin Hypokalemia -replaced with 40 mg PO KCl HTN -continue home meds Hypothyroidism -continue levothyroxine Code status: Full code Dr. Charleen Gallagher, PGY-1 FMR H&P: Upper Level - Pertinent history 42F presents with SOB for 3 days. It is associated with cough, green sputum, SOB , nausea, decreased appetite, fever and chills. She has tried cough syrup but it has not helped. She has a history of PE, June of this year. ROS: Gen: Endorse fever and chills HEENT: Denies congestion, ear pain, change in vision. CV: Denies chest pain, palpitation Resp: Endorse SOB, purulent cough. GI: Endorse diarrhea and generalized abd pain PMHx: Lupus, RA, HTN, Hypothyrodism, depression, bipolar, cold sores Surgery: x3 Allergies: Bactrim - Rash Current Med: 1. Acyclovir 400 BID 2. Amlodipine 10 mg QD 3. Synthroid 175 mg QD 4. Hydroxychlorquine 200 mg QD 5. Ergocalciferol 50,000 U QD 6. Tylenol-codeine 300-30, 1 tab q4hr PRN pain 7. Elliquis 5 mg QD Social: Denies alcohol, tobacco, drug use. - Pertinent findings Gen: NAD HEENT: Normocephalic, moist mucosal membrane, no lymphadenopathy CV: RRR with no apparent m/g/r Resp: CTA with no apparent crackles Abd: Normoactive, not tender to palpation, no guarding/rigidity Derm: No obvious rash Ext: No pitting edema in LE Psych: Irritated mood WBC 17.1, Potassium 3.2 Trop 0.01 BNP 65 LA 1.7 UA: Neg EKG: Sinus Tach CXR: No acute processes CTA: No acute PE, tiny calcification at site of previous PE - Plan Date/Time: 11/13/172042 I, [Ozzy Bro], have evaluated this patient and agree with findings/plan as outlined by general intern resident. Pertinent changes/additions are listed here. 1. Community acquired pneumonia: Patient present with SOB. Image rule out PE. Pneumonia was not seen via imaging but dx made by history and exam finding. Will treat broadly at this time with vanc and zosyn. Narrow coverage as appropriate. Bld culture, legionella, strep test pending. 2. Diarrhea: In context of fever, will get stool study to rule out infectious cause. 3. Hx of PE: No PE on CTA. Continue elliquis 4. Hypokalemia: Possibly due to diarrhea. Will replace. Rechecked in morning. 5. HTN: Continue home amlodipine. 6. Hypothyrodism: Continue home synthroid 7. Rheumatoid Arthritis: Continue hydroxychloroquine 8. Lupus: Continue hydroxychloroquine Attending Addendum - Attending Addendum Date/Time: 11/14/17 0634 I personally evaluated the patient and discussed the management with Dr. Elissa Gallagher I agree with the History, Examination, Assessment and Plan documented above with any addition or exceptions noted below. 42 yo female with several days primarily Upper and lower respiratory complaints meets SIRS criteria however initial CXR not impressive for pneumonia consider repeat post hydration. Most likely source fever is lungs adjust antibiotics pending initial work up.
[2017-11-13] MEDS ORDERED: Acetaminophen 325 MG TAB PO PRN (20:44)
[2017-11-13 21:56] VITALS: BMI 42.5
[2017-11-13 22:43] LABS: Legionella Urinary Ag Negative (Negative); Strep pneumo Urine Ag NEGATIVE (NEGATIVE)
--- NOTE | 2017-11-13 23:56 | PDOC.EVN ---
Attending Addendum - Attending Addendum Date/Time: 11/13/17 3970 I personally evaluated the patient and discussed the management with Dr. Gallagher I agree with the History, Examination, Assessment and Plan documented above with any addition or exceptions noted below.For further specifics refer to resident Hx & PE. 42 yo Patient with PMHX SLE and prior PE present to ER with several days fever, chills and cough productive with blood tinged. Patient with SIRS criteria initial CXR non revealing started empirical antibiotics in ER for presumed pneumonia. Admit continue sepsis work up.
[2017-11-14] MEDS ORDERED: Potassium Chloride 10 MEQ in Premix Bag 1 BAG IVPB SCH (01:15)
[2017-11-14] MEDS ORDERED: Potassium Chloride 20 MEQ in Premix Bag 1 BAG IVPB SCH (01:30)
[2017-11-14] MEDS ORDERED: Potassium Chloride 20 MEQ TAB PO SCH (02:30)
[2017-11-14] MEDS: Guaifenesin DM 100-10/5 ML UDCUP PO PRN ×2 (02:35→10:38)
[2017-11-14] MEDS: Piperacillin/Tazobactam 3.375 GM in Sodium Chloride 0.9% 100 ML IVPB SCH ×3 (04:35→18:31)
[2017-11-14] MEDS ORDERED: Melatonin 3 MG TAB PO PRN (04:45)
[2017-11-14] MEDS: Levothyroxine 150 MCG TAB PO SCH (05:56)
[2017-11-14] MEDS ORDERED: Piperacillin/Tazobactam 1.5 GM in Sodium Chloride 0.9% 100 ML IVPB SCH (06:00)
--- NOTE | 2017-11-14 06:22 | PDOC.FM ---
- Subjective Subjective: Ms Bolden is a 42yo female with pmh of RA and Lupus on immunosuppression presenting with fever, cough and leukocytosis. No overnight events. Reports fever/chills, cough and chest pain related to coughing, diarrhea 2-5x per day that is loose but not completely liquid, and abdominal pain that is partially received with BM. No questions or concerns at this time. - Objective MAR Reviewed: Yes Vital Signs & Weight: Vital Signs (12 hours) Temp Pulse Resp BP BP Pulse Ox 11/14/17 04:18 99.0 F 91 18 120/71 98 11/13/17 23:50 99.8 F H 95 20 131/63 97 11/13/17 23:34 99.2 F 92 16 11/13/17 20:11 99.2 F 92 16 117/56 L 99 Weight Weight 102.24 kg I&O: 11/12/17 11/13/17 11/14/17 06:59 06:59 06:59 Intake Total 480 Output Total 1130 Balance -650 Result Diagrams: 11/14/17 06:48 11/14/17 06:48 <Ruma Gonzales - Last Filed: 11/14/17 10:35> - Objective Vital Signs & Weight: Vital Signs (12 hours) Temp Pulse Resp BP BP Pulse Ox 11/14/17 10:16 70 11/14/17 07:50 97.9 F 70 20 116/58 L 97 11/14/17 04:18 99.0 F 91 18 120/71 98 11/13/17 23:50 99.8 F H 95 20 131/63 97 Weight Weight 102.24 kg I&O: 11/13/17 11/14/17 11/15/17 06:59 06:59 06:59 Intake Total 480 Output Total 1130 Balance -650 Result Diagrams: 11/14/17 06:48 11/14/17 06:48 <Lance Loo - Last Filed: 11/14/17 11:38> Phys Exam - Physical Examination Constitutional: NAD Respiratory: clear to auscultation bilateral distant breath sounds bilaterally Cardiovascular: RRR, no significant murmur Gastrointestinal: soft, non-tender, positive bowel sounds Musculoskeletal: pulses present Psychiatric: normal affect, A&O x 3 Skin: cap refill <2 seconds <Ruma Gonzalse - Last Filed: 11/14/17 10:35> Dx/Plan (1) CAP (community acquired pneumonia) Code(s): J18.9 - PNEUMONIA, UNSPECIFIED ORGANISM Status: Acute (2) Hypokalemia Code(s): E87.6 - HYPOKALEMIA Status: Acute (3) Hypothyroidism Code(s): E03.9 - HYPOTHYROIDISM, UNSPECIFIED Status: Acute (4) HTN (hypertension) Code(s): I10 - ESSENTIAL (PRIMARY) HYPERTENSION Status: Acute (5) Lupus Code(s): L93.0 - DISCOID LUPUS ERYTHEMATOSUS Status: Acute (6) Rheumatoid arthritis Code(s): M06.9 - RHEUMATOID ARTHRITIS, UNSPECIFIED Status: Acute (7) Hx pulmonary embolism Code(s): Z86.711 - PERSONAL HISTORY OF PULMONARY EMBOLISM Status: Acute - Plan Plan: Community acquired pneumonia - SOB and met SIRS at presentation with WBC 17.4, fever and tachycardia - Currently immunosuppressed for RA & Lupus - CTA: no PE - Continue Vanc and Zosyn - Xray neg for pneumonia, dx by History and exam - Lactate nml, BNP 65 - Blood cx pending - UA: no signs of infection - Procalcitonin: 0.05 - Urine legionella, strep test neg - Tylenol PRN - Pt just had CT abdomen/pelvis preformed at the [facility] a couple weeks ago. Obtain records - Consider repeat Abdominal CT once records obtained Diarrhea/Abdominal pain - Stool study pending Hx of PE - CTA: neg for PE - Continue home Eliquis Hypokalemia - likely 2/2 diarrhea - Replace with PO KCl - Continue to monitor with BMPs HTN - Continue home Amlodipine Hypothyroidism - Continue home Synthroid RA - Continue home hydroxychloroquine Lupus - Continue home hydroxychloroquine Code Status: Full code DVT ppx: Home Eliquis <Ruma Gonzales - Last Filed: 11/14/17 10:35> Attending Addendum - Attending Addendum Date/Time: 11/14/17 1137 I personally evaluated the patient and discussed the management with Dr. Gonzales I agree with the History, Examination, Assessment and Plan documented above with any addition or exceptions noted below.Patient stable diffuse abdominal tenderness no rebound Lung as source infection doubtful and will proceed with CT of abdomen and pelvis. <Lance Loo - Last Filed: 11/14/17 11:38>
[2017-11-14 07:24] LABS: #Basophils 0.1 thou/uL (0.0-0.2); #Eosinphils 0.1 thou/uL (0.0-0.7); #Lymphocytes 3.2 thou/uL (1.20-3.40); #Monocytes 0.9 thou/uL (0.11-0.59); #Neutrophils 13.1 thou/uL (1.40-6.50); %Basophils 0.6 % (0.0-1.0); %Eosinophils 0.8 % (0.0-10.0); %Lymphocytes 18.4 % (21.0-51.0); %Monocytes 5.1 % (0.0-10.0); %Neutrophils 75.1 % (42.0-75.0); Hemoglobin 12.5 g/dL (12.0-16.0); Mean Corpuscular Hemoglobin 31.4 pg (27.0-31.0); Mean Corpuscular Volume 89.6 fL (78.0-98.0); Mean Platelet Volume 7.8 fL (7.4-10.4); Platelet Count 326 thou/uL (130-400); RBC Distribution Width 13.5 % (11.5-14.5); Red Blood Cell (RBC) Count 3.98 mill/uL (4.20-5.40); White Blood Cell (WBC) Count 17.4 thou/uL (4.8-10.8)
[2017-11-14] MEDS ORDERED: Ondansetron ODT 4 MG TAB PO PRN (07:26)
[2017-11-14 07:43] LABS: Anion Gap 17 mmol/L (10-20); BUN (Urea Nitrogen) Less than 4 mg/dL (7.0-18.7); Calc. Creatinine Clearance 147 mL/min (70-130); Calcium 9.1 mg/dL (7.8-10.44); Carbon Dioxide 16 mmol/L (22-29); Chloride 110 mmol/L (98-107); Estimated GFR-MDRD Greater than 90; Glucose 98 mg/dL (70-105); Potassium 3.6 mmol/L (3.5-5.1); Sodium 139 mmol/L (136-145)
[2017-11-14] MEDS ORDERED: Vancomycin HCl 1 GM in Sodium Chloride 0.9% 250 ML 250 ML IVPB SCH (09:00)
[2017-11-14] MEDS ORDERED: Ergocalciferol 1.25 MG(50,000 UNITS) CAP PO SCH (09:00)
[2017-11-14] MEDS: Vancomycin HCl 1.5 GM in Sodium Chloride 0.9% 250 ML 300 ML IVPB SCH ×2 (10:12→20:12)
[2017-11-14] MEDS: Meloxicam 15 MG TAB PO SCH (10:14)
[2017-11-14] MEDS: Pilocarpine 5 MG TAB PO SCH ×2 (10:15→19:44)
[2017-11-14] MEDS: Amlodipine 5 MG TAB PO SCH (10:16)
[2017-11-14] MEDS: Acyclovir 400 mg Tablet PO SCH ×2 (10:16→20:08)
[2017-11-14] MEDS: Topiramate 25 MG TAB PO SCH (10:16)
[2017-11-14] MEDS: FLUoxetine HCl 20 MG CAP PO SCH (10:17)
[2017-11-14] MEDS: Hydroxychloroquine Sulfate 200 MG TAB PO SCH ×2 (10:17→19:44)
[2017-11-14] MEDS: Apixaban 2.5 MG TAB PO SCH ×2 (10:17→19:44)
[2017-11-14] MEDS ORDERED: Dicyclomine 10 MG CAP PO PRN (11:12)
[2017-11-14] MEDS ORDERED: ISOVUE-370 76%-LOCM 1 ML ONE (12:04)
[2017-11-14] MEDS: Dicyclomine 10 MG CAP PO SCH ×3 (13:21→19:44)
[2017-11-14] MEDS: Lactated Ringer's 1,000 ML IV SCH ×2 (15:07→18:13)
--- NOTE | 2017-11-14 18:49 | CT ---
CONTRAST ENHANCED ABDOMEN AND PELVIC CT 11/14/17 No prior comparison. INDICATION: Leukocytosis, sepsis. History of lupus and abdominal pain. FINDINGS: There is a small hiatal hernia. No acute abnormality of the liver or spleen. There are punctate bilat eral renal calculi. Hypodensity compatible with cyst involves the anterior aspect of the right kidney . No adrenal mass is seen bilaterally. Pancreas is unremarkable. No mesenteric inflammation, ascites or free air. There is a large hypodensity of the right adnexa likely arising from the right ovary. Fi nding measures approximately 5 cm in diameter. Abdominal aorta is normal in caliber. No adenopathy is seen. No evidence of an acute osseous abnormality. The contrast opacified small bowel is nondilated. There are mild colonic diverticula. There is nonspecific mild heterogeneity of the uterine parenchym a. IMPRESSION: No CT findings to explain patient's presentation of sepsis. There is a prominent right adnexal hypodensity as discussed above. This may be further assessed with pelvic ultrasound. Bilateral nonobstructing nephrolithiasis. Additional details are described above. POS: [facility]
[2017-11-14] MEDS: Acetaminophen 325 MG TAB PO PRN (19:34)
[2017-11-15] MEDS: Lactated Ringer's 1,000 ML IV SCH ×2 (01:19→10:19)
[2017-11-15] MEDS: Piperacillin/Tazobactam 3.375 GM in Sodium Chloride 0.9% 100 ML IVPB SCH ×2 (01:29→04:52)
[2017-11-15] MEDS: Acetaminophen 325 MG TAB PO PRN (01:41)
[2017-11-15] MEDS: Guaifenesin DM 100-10/5 ML UDCUP PO PRN (01:41)
[2017-11-15] MEDS: Levothyroxine 150 MCG TAB PO SCH (04:52)
[2017-11-15 05:22] LABS: #Eosinphils 0.2 thou/uL (0.0-0.7); #Lymphocytes 2.1 thou/uL (1.20-3.40); #Monocytes 0.6 thou/uL (0.11-0.59); #Neutrophils 6.2 thou/uL (1.40-6.50); %Basophils 0.5 % (0.0-1.0); %Eosinophils 2.3 % (0.0-10.0); %Lymphocytes 23.1 % (21.0-51.0); %Neutrophils 68.1 % (42.0-75.0); Hemoglobin 11.4 g/dL (12.0-16.0); Mean Corpuscular HGB CONC 34.3 g/dL (32.0-36.0); Mean Corpuscular Volume 90.3 fL (78.0-98.0); Mean Platelet Volume 7.5 fL (7.4-10.4); Platelet Count 288 thou/uL (130-400); RBC Distribution Width 13.6 % (11.5-14.5); Red Blood Cell (RBC) Count 3.67 mill/uL (4.20-5.40); White Blood Cell (WBC) Count 9.1 thou/uL (4.8-10.8)
--- NOTE | 2017-11-15 05:25 | PDOC.FM ---
- Subjective Subjective: Pt reports improvement in abdominal pain. Reports cough productive of sputum preventing her from falling asleep last night, improved with Tylenol overnight. No other concerns or complaints. - Objective MAR Reviewed: Yes Vital Signs & Weight: Vital Signs (12 hours) Temp Pulse Resp BP Pulse Ox 11/15/17 04:01 97.7 F 71 20 119/54 L 100 11/14/17 20:00 98.4 F 84 18 11/14/17 19:36 98.4 F 84 18 149/73 H 100 Weight Weight 102.24 kg I&O: 11/13/17 11/14/17 11/15/17 06:59 06:59 06:59 Intake Total 480 2465 Output Total 1130 Balance -650 2465 Result Diagrams: 11/15/17 05:02 11/15/17 05:02 <Ruma Gonzales - Last Filed: 11/15/17 09:44> - Objective Vital Signs & Weight: Vital Signs (12 hours) Temp Pulse Resp BP Pulse Ox 11/15/17 08:00 98.6 F 71 20 11/15/17 07:40 71 123/76 11/15/17 04:01 97.7 F 71 20 119/54 L 100 Weight Weight 102.24 kg I&O: 11/14/17 11/15/17 11/16/17 06:59 06:59 06:59 Intake Total 480 3950 440 Output Total 1130 4 Balance -650 3946 440 Result Diagrams: 11/15/17 05:02 11/15/17 05:02 <Lance Loo - Last Filed: 11/15/17 14:19> Phys Exam - Physical Examination Constitutional: NAD <Ruma Gonzales - Last Filed: 11/15/17 09:44> Dx/Plan (1) CAP (community acquired pneumonia) Code(s): J18.9 - PNEUMONIA, UNSPECIFIED ORGANISM Status: Acute (2) Hypokalemia Code(s): E87.6 - HYPOKALEMIA Status: Acute (3) Hypothyroidism Code(s): E03.9 - HYPOTHYROIDISM, UNSPECIFIED Status: Acute (4) HTN (hypertension) Code(s): I10 - ESSENTIAL (PRIMARY) HYPERTENSION Status: Acute (5) Lupus Code(s): L93.0 - DISCOID LUPUS ERYTHEMATOSUS Status: Acute (6) Rheumatoid arthritis Code(s): M06.9 - RHEUMATOID ARTHRITIS, UNSPECIFIED Status: Acute (7) Hx pulmonary embolism Code(s): Z86.711 - PERSONAL HISTORY OF PULMONARY EMBOLISM Status: Acute - Plan Plan: Fever w/o a source in immunocompromised patient - SOB and met SIRS at presentation with WBC 17.4, fever and tachycardia - Currently immunosuppressed for RA & Lupus - Unlikely bacterial procalcitonin 0.05, d/c Vanc and Zosyn - Ruled out GI, pneumonia, and UTI as cause of fever - Likely symptoms are a result of gastroenteritis - CTA: no PE, Xray neg for pneumonia - Lactate nml, BNP 65 - Blood cx NGTD - UA: no signs of infection - Urine legionella, strep test neg - Stool studies and C diff neg, lactoferrin + - Abdominal CT 11/14: right adnexal hypodensity 5cm, bilateral nonobstructing nephrolithiasis, mild colonic diverticula - Tylenol PRN Adnexal hypodensity found on Abd CT - consider TVUS for further eval outpatient Leukocytosis, resolved - Initially 17.4 Hx of PE - CTA: neg for PE - Continue home Eliquis Hypokalemia - likely 2/2 diarrhea - Replace with PO KCl - Continue to monitor with BMPs HTN - Continue home Amlodipine Hypothyroidism - Continue home Synthroid RA - Continue home hydroxychloroquine Lupus - Continue home hydroxychloroquine Code Status: Full code DVT ppx: Home Eliquis <Ruma Gonzales - Last Filed: 11/15/17 09:44> Attending Addendum - Attending Addendum Date/Time: 11/15/17 0966 I personally evaluated the patient and discussed the management with Dr. Gonzales I agree with the History, Examination, Assessment and Plan documented above with any addition or exceptions noted below.Patient stable dismiss hold probable viral etiology ok d/c for f/u observation outpatient. Patient counseled in detail results and findings and care plan. History of Rheumatoid arthritis and SLE needs further definition as outpatient per ongoing Rheumatology evaluation and treatment goals. <Lance Loo - Last Filed: 11/15/17 14:19>
[2017-11-15 05:42] LABS: Anion Gap 9 mmol/L (10-20); BUN (Urea Nitrogen) 4 mg/dL (7.0-18.7); Calc. Creatinine Clearance 157 mL/min (70-130); Calcium 9.1 mg/dL (7.8-10.44); Carbon Dioxide 22 mmol/L (22-29); Chloride 112 mmol/L (98-107); Estimated GFR-MDRD Greater than 90; Glucose 98 mg/dL (70-105); Potassium 3.4 mmol/L (3.5-5.1); Sodium 140 mmol/L (136-145)
[2017-11-15] MEDS: Apixaban 2.5 MG TAB PO SCH (07:31)
[2017-11-15] MEDS: Pilocarpine 5 MG TAB PO SCH (07:32)
[2017-11-15] MEDS: Topiramate 25 MG TAB PO SCH (07:34)
[2017-11-15] MEDS: FLUoxetine HCl 20 MG CAP PO SCH (07:34)
[2017-11-15] MEDS: Meloxicam 15 MG TAB PO SCH (07:35)
[2017-11-15] MEDS: Dicyclomine 10 MG CAP PO SCH (07:37)
[2017-11-15] MEDS: Hydroxychloroquine Sulfate 200 MG TAB PO SCH (07:38)
[2017-11-15] MEDS: Acyclovir 400 mg Tablet PO SCH (07:39)
[2017-11-15 07:40] VITALS: BP 123/76
[2017-11-15] MEDS: Amlodipine 5 MG TAB PO SCH (07:40)
[2017-11-15] MEDS ORDERED: Potassium Chloride 20 MEQ TAB PO SCH (08:00)
[2017-11-15 08:09] VITALS: TEMP 98.6
[2017-11-15] MEDS: Vancomycin HCl 1.5 GM in Sodium Chloride 0.9% 250 ML 300 ML IVPB SCH (08:44)
--- NOTE | 2017-11-15 11:57 | DIS ---
DATE OF ADMISSION: 11/13/2017 DATE OF DISCHARGE: 11/15/2017 RESIDENT: Ruma Gonzales, PGY1. ADMITTING ATTENDING: Dr. Lance Loo. DISCHARGE ATTENDING: Dr. Lance Loo CONSULTATIONS: None. PROCEDURES: 1. CTA showed no evidence of PE, mild calcification at the site of prior tiny embolus at the left lower lobe. 2. Abdomen and pelvis CT showing right adnexal hypodensity and bilateral nonobstructing nephrolithiasis. PRIMARY DIAGNOSIS: 1. Gastroenteritis. SECONDARY DIAGNOSES: 1. Hypokalemia. 2. Hypothyroidism. 3. Hypertension. 4. Lupus. 5. RA. 6. History of pulmonary embolism. DISCHARGE MEDICATIONS: 1. Acyclovir 400 mg b.i.d. 2. Amlodipine 5 daily. 3. Eliquis 5 b.i.d. 4. Vitamin D2 50,000 units every 7 days. 5. Prozac 40 daily. 6. Plaquenil 200 b.i.d. 7. Levothyroxine 175 mcg daily. 8. Protonix 40 mg daily. 9. Salagen 7.5 p.o. b.i.d. 10. Topiramate 50 mg daily. 11. Tessalon Perles 100 mg t.i.d. p.r.n. for 7 days. 12. Imodium 2 mg p.r.n., 30 tablets. HISTORY OF PRESENT ILLNESS AND HOSPITAL COURSE: Ms. Bolden is a 42-year-old female with a past medical history of lupus and RA, currently immunosuppressed, who presented to the ED with a 4-day history of cough, nausea, vomiting, and headache. She also had complaint of diarrhea for the last 3 weeks with associated abdominal pain. She met SIRS criteria at presentation. Procalcitonin was 0.05. She had been started on vancomycin and Zosyn, but this was discontinued once bacterial infection had been ruled out. We ruled out causes of GI, pneumonia and UTI as the causes of fever. Abdominal CT showed no signs of infection, but was notable for a right adnexal mass or hypodensity. This can be followed up outpatient with a transvaginal ultrasound. Her stool studies were all negative. Blood cultures were neg. Her symptoms are likely a result of gastroenteritis. Recommended treatment with Tylenol and Imodium as needed. She has a history of PE, she was continued on her home dose of Eliquis. Also noted to have hypokalemia, potassium was replaced and stable upon discharge. For her chronic conditions of hypertension, hypothyroidism, RA, lupus, these were stable throughout her stay on her home medications. DISPOSITION: Stable. DISCHARGE INSTRUCTIONS: 1. Location: Home. 2. Diet: Heart healthy, low sodium. 3. Activity: No restrictions. 4. Follow up in clinic at [facility] within 1 week. SUSANA
== END 2017-11-15 11:42 | disposition home or self-care (01) ==
LOC: ERS 15:52 → 2SW 19:00 → ERS 20:58
PROVIDERS: ADMIT Family Medicine; ATTEND Family Medicine
DX: K52.9 Noninfective gastroenteritis and colitis, unspecified (principal); J18.9 Pneumonia, unspecified organism; E87.6 Hypokalemia; E03.9 Hypothyroidism, unspecified; I10 Essential (primary) hypertension; M06.9 Rheumatoid arthritis, unspecified; Z86.711 Personal history of pulmonary embolism; Z79.899 Other long term (current) drug therapy; Z88.2 Allergy status to sulfonamides
CPT/HCPCS: 36415; 71045; 71275; 74177; 80048; 80053; 80202; 81003; 82550; 82553; 83605; 83630; 83880; 84145; 84484; 84703; 85025; 85610; 85730; 87040; 87045; 87046; 87086; 87324; 87449; 87899; 93005; 94760; 96361; 96365; 96366; 96367; 96375; A4216; G0378; J2405; J2543; J3370; J3480; J7050; Q0162

== ENCOUNTER 2018-01-13 15:45 | Emergency (ER) | payer OTHER ==
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
[2018-01-13] MEDS ORDERED: Ondansetron HCl/PF 4 MG/2 ML Vial ONE (18:03)
== END 2018-01-13 18:22 | disposition home or self-care (01) ==
LOC: ERS 15:45
DX: M54.5 Low back pain (principal); M54.2 Cervicalgia; D25.9 Leiomyoma of uterus, unspecified; I10 Essential (primary) hypertension; F31.9 Bipolar disorder, unspecified; E03.9 Hypothyroidism, unspecified; Z86.711 Personal history of pulmonary embolism; V89.2XXA Person injured in unspecified motor-vehicle accident, traffic, initial encounter
CPT/HCPCS: 70450; 71260; 72125; 74177; 96374; 96375; J2405

== ENCOUNTER 2018-04-21 23:39 | Emergency (ER) | payer OTHER ==
[2018-04-22] MEDS ORDERED: Pantoprazole 40 MG VIAL ONE ×2 (00:14→00:15)
[2018-04-22] MEDS ORDERED: Nitroglycerin 2% Ointment 1 INCH/1 GM Packet ONE (00:14)
[2018-04-22] MEDS ORDERED: Nitroglycerin 0.4 MG TAB (25 Tab Bottle) ONE (00:20)
[2018-04-22 00:33] LABS: #Basophils 0.1 thou/uL (0.0-0.2); #Eosinphils 0.1 thou/uL (0.0-0.7); #Lymphocytes 2.5 thou/uL (1.20-3.40); #Monocytes 0.8 thou/uL (0.11-0.59); #Neutrophils 4.5 thou/uL (1.40-6.50); %Basophils 0.9 % (0.0-1.0); %Eosinophils 0.8 % (0.0-10.0); %Lymphocytes 31.4 % (21.0-51.0); %Monocytes 10.1 % (0.0-10.0); %Neutrophils 56.9 % (42.0-75.0); Hemoglobin 12.1 g/dL (12.0-16.0); Mean Corpuscular HGB CONC 34.3 g/dL (32.0-36.0); Mean Corpuscular Hemoglobin 31.3 pg (27.0-31.0); Mean Corpuscular Volume 91.4 fL (78.0-98.0); Mean Platelet Volume 7.8 fL (7.4-10.4); Platelet Count 289 thou/uL (130-400); Red Blood Cell (RBC) Count 3.85 mill/uL (4.20-5.40)
[2018-04-22 00:45] LABS: Pregnancy Test - Urine (BHCG) Negative (Negative); Pregu Control Background? CLEAR/WHITE (CLR/WHITE); Pregu Control Bar Appear? YES (CONTROL BAR); Specific Gravity 1.019 (1.002-1.036)
[2018-04-22 00:51] LABS: Amphetamine Not Detected (NotDetected); Barbiturates Screen Not Detected (NotDetected); Benzodiazepine Screen Not Detected (NotDetected); Cocaine Metabolite Screen Not Detected (NotDetected); Medtox Control Line Valid? VALID (VALID); Medtox Reader # READER 4; Methadone Not Detected (NotDetected); Methamphetamine Not Detected (NotDetected); Opiate Screen Detected (NotDetected); Oxycodone Screen Not Detected (NotDetected); Phencyclidine (PCP) Not Detected (NotDetected); THC/Cannabinoid Screen Not Detected (NotDetected); Tricyclic Screen Not Detected (NotDetected)
[2018-04-22 00:55] LABS: ALT (SGPT) 16 U/L (8-55); AST (SGOT) 23 U/L (5-34); Acetaminophen Less than 6.0 mcg/mL (10.0-30.0); Albumin 3.7 g/dL (3.5-5.0); Alcohol Less than 10 mg/dL (Less than 10); Alkaline Phosphatase 71 U/L (40-150); Anion Gap 15 mmol/L (10-20); BUN (Urea Nitrogen) 10 mg/dL (7.0-18.7); Bilirubin, Total 0.2 mg/dL (0.2-1.2); Calc. Creatinine Clearance 0 mL/min (70-130); Calcium 9.4 mg/dL (7.8-10.44); Carbon Dioxide 22 mmol/L (22-29); Chloride 103 mmol/L (98-107); Estimated GFR-MDRD Greater than 90; Globulin 3.6 g/dL (2.4-3.5); Glucose 80 mg/dL (70-105); Protein, Total 7.3 g/dL (6.0-8.3); Salicylate Less than 8.0 mg/dL (15.0-30.0); Sodium 136 mmol/L (136-145)
[2018-04-22 01:01] LABS: CK (CPK) 160 U/L (29-168)
[2018-04-22] MEDS ORDERED: Acetaminophen 500 MG TAB ONE (02:40)
[2018-04-22 04:15] LABS: Troponin I Less than 0.010 ng/mL (< 0.028)
[2018-04-22] MEDS ORDERED: Levothyroxine 175 MCG TAB PO SCH (06:00)
[2018-04-22] MEDS ORDERED: Lorazepam 2 MG/ML VIAL ONE (07:23)
--- NOTE | 2018-04-22 08:41 | RAD ---
SINGLE VIEW OF THE CHEST: COMPARISON: 11/13/2017. HISTORY: Chest pain. FINDINGS: Single view of the chest shows a normal sized cardiomediastinal silhouette. There is no evidence of c onsolidation, mass, or pleural effusion. The bones are unremarkable. IMPRESSION: No evidence of acute cardiopulmonary disease. POS: [facility]
[2018-04-22] MEDS ORDERED: DULoxetine 60 MG CAP PO SCH (09:00)
[2018-04-22] MEDS ORDERED: Acyclovir 400 mg Tablet PO SCH (09:00)
[2018-04-22] MEDS ORDERED: Hydroxychloroquine Sulfate 200 MG TAB PO SCH (09:00)
[2018-04-22] MEDS ORDERED: Ferrous Sulfate 325 MG TAB PO SCH (09:00)
[2018-04-22] MEDS ORDERED: Apixaban 2.5 MG TAB PO SCH (09:00)
[2018-04-22] MEDS ORDERED: Pilocarpine 5 MG TAB PO SCH (09:00)
[2018-04-22] MEDS ORDERED: Divalproex Sodium DR 500 MG TAB PO SCH (09:00)
[2018-04-22] MEDS ORDERED: Amlodipine 5 MG TAB ONE ×2 (10:59→18:06)
[2018-04-22] MEDS ORDERED: Gabapentin 300 MG CAP PO SCH ×2 (11:15→21:00)
[2018-04-22] MEDS ORDERED: Cyclobenzaprine 10 MG TAB PO SCH ×2 (11:15→21:00)
[2018-04-22] MEDS ORDERED: Acetaminophen 325 MG TAB ONE (17:03)
[2018-04-22] MEDS ORDERED: hydrOXYzine 25 MG TAB ONE (18:07)
--- NOTE | 2018-04-24 23:30 | EKG ---
Test Reason : Blood Pressure : / mmHG Vent. Rate : 093 BPM Atrial Rate : 093 BPM P-R Int : 136 ms QRS Dur : 080 ms QT Int : 378 ms P-R-T Axes : 067 066 052 degrees QTc Int : 469 ms Normal sinus rhythm Nonspecific T wave abnormality Prolonged QT Abnormal ECG Confirmed by CAL LOPEZ DO ([id number]), photograph editor JUAN CARLOS ROSA ([id number]) on 04/24/2018 11:29:32 PM Referred By: Confirmed By:CAL LOPEZ DO
== END 2018-04-22 19:26 ==
LOC: ERS 23:39
DX: T42.6X2A Poisoning by other antiepileptic and sedative-hypnotic drugs, intentional self-harm, initial encounter (principal); F31.9 Bipolar disorder, unspecified; E03.9 Hypothyroidism, unspecified; I10 Essential (primary) hypertension; M19.90 Unspecified osteoarthritis, unspecified site; Z86.711 Personal history of pulmonary embolism
CPT/HCPCS: 36415; 71045; 80053; 80164; 80306; 80307; 81025; 82550; 84443; 84484; 85025; 93005; 96374; 96375; C9113; J2060

== ENCOUNTER 2018-06-03 01:37 | Observation (INO) | payer OTHER ==
[2018-06-03] MEDS ORDERED: Morphine 2 MG/ML SYRINGE ONE (01:50)
[2018-06-03] MEDS ORDERED: Ondansetron PF 4 MG/2 ML Vial ONE (01:55)
[2018-06-03 02:08] LABS: #Eosinphils 0.1 thou/uL (0.0-0.7); #Lymphocytes 2.3 thou/uL (1.20-3.40); #Monocytes 0.7 thou/uL (0.11-0.59); %Basophils 0.5 % (0.0-1.0); %Lymphocytes 25.3 % (21.0-51.0); %Monocytes 7.5 % (0.0-10.0); %Neutrophils 65.7 % (42.0-75.0); Hemoglobin 12.3 g/dL (12.0-16.0); Mean Corpuscular HGB CONC 33.9 g/dL (32.0-36.0); Mean Corpuscular Hemoglobin 31.9 pg (27.0-31.0); Mean Platelet Volume 7.8 fL (7.4-10.4); Platelet Count 290 thou/uL (130-400); RBC Distribution Width 12.1 % (11.5-14.5); Red Blood Cell (RBC) Count 3.85 mill/uL (4.20-5.40); White Blood Cell (WBC) Count 9.1 thou/uL (4.8-10.8)
[2018-06-03 02:29] LABS: ALT (SGPT) 15 U/L (8-55); AST (SGOT) 22 U/L (5-34); Albumin 3.8 g/dL (3.5-5.0); Alkaline Phosphatase 68 U/L (40-150); Anion Gap 11 mmol/L (10-20); BUN (Urea Nitrogen) 9 mg/dL (7.0-18.7); Bilirubin, Total 0.2 mg/dL (0.2-1.2); Calc. Creatinine Clearance 0 mL/min (70-130); Calcium 9.4 mg/dL (7.8-10.44); Carbon Dioxide 25 mmol/L (22-29); Chloride 103 mmol/L (98-107); Estimated GFR-MDRD 90; Globulin 3.5 g/dL (2.4-3.5); Glucose 98 mg/dL (70-105); Lipase 17 U/L (8-78); Potassium 4.1 mmol/L (3.5-5.1); Protein, Total 7.3 g/dL (6.0-8.3); Sodium 135 mmol/L (136-145)
--- NOTE | 2018-06-03 03:52 | PDOC.FPRHP ---
- History of Present Illness Chief Complaint: chest pain History of Present Illness: The patient is a 43YO AAF w/ a PMH significant for HTN, CASEY, obesity, and anxiety who presented to the ED with a CC of L-sided chest pain that has been ongoing for the last month. Per the patient she has had constant, sharp and heavy, left sided chest pain with radiation into her neck, arm and down to her foot that is exacerbated with exertion and laying on her back for the last month. She states that at its worst it is a 9/10 in severity and endorses associated nausea, diaphoresis and SOB. She stated that it was somewhat relieved by SL nitro with EMS but not for long. The patient denies any previous cardiac workup but states that her PCP was planning on getting a cardiac stress test as an outpatient soon. - Allergies/Adverse Reactions Allergies Allergy/AdvReac Type Severity Reaction Status Date / Time Sulfa (Sulfonamide Allergy Verified 06/03/18 11:48 Antibiotics) sulfamethoxazole Allergy Verified 06/03/18 11:48 [From Bactrim] trimethoprim [From Bactrim] Allergy Verified 06/03/18 11:48 turkey Allergy Verified 06/03/18 11:48 - Home Medications Medication Instructions Recorded Confirmed Type Acyclovir 400 mg PO BID 06/24/17 06/03/18 History Ergocalciferol (Vitamin D2) 50,000 unit PO Q7DAYS 06/24/17 06/03/18 History [Vitamin D2] Hydroxychloroquine Sulfate 1 tab PO BID 06/24/17 06/03/18 History Levothyroxine [Synthroid] 175 mcg PO DAILY 06/24/17 06/03/18 History Amlodipine [Norvasc] 5 mg PO DAILY #0 tab 06/26/17 06/03/18 Rx Benzonatate [Tessalon] 100 mg PO TID PRN 7 Days #21 cap 11/15/17 06/03/18 Rx Pantoprazole [Protonix] 40 mg PO DAILY tab 11/15/17 06/03/18 Rx ARIPiprazole [Abilify] 10 mg PO HS 06/03/18 06/03/18 History Fluticasone Propionate [Flonase 1 spray EA NARE DAILY 06/03/18 06/03/18 History Nasal Lester] Prazosin HCl 2 mg PO HS 06/03/18 06/03/18 History Promethazine [Phenergan] 12.5 mg PO Q4HR PRN 06/03/18 06/03/18 History Vortioxetine Hydrobromide 10 mg PO DAILY 06/03/18 06/03/18 History [Brintellix] traZODone HCl [Trazodone HCl] 100 mg PO HS 06/03/18 06/03/18 History - History PMHx: h/o PE & DVT, Depression, anxiety, CASEY, hypothyroidism, genital herpes, GERD, Bipolar I, Lupus, HTN PSHx: C/S x 3 FHx: DM son & grandmother Social: No EtOH, tobacco, or drug use. - Review of Systems General: denies: fever/chills, fatigue Eyes: reports: vision changes. denies: eye pain ENT: denies: nasal congestion, rhinorrhea Respiratory: reports: shortness of breath. denies: cough Cardiovascular: reports: chest pain, edema Gastrointestinal: reports: nausea. denies: vomiting, diarrhea, constipation, abdominal pain Genitourinary: denies: dysuria Skin: denies: rashes, itching Musculoskeletal: reports: pain, tenderness Neurological: reports: numbness. denies: weakness Psychological: reports: anxiety, depression - Vital signs BP: 137/79 HR: 90 RR: 15 Tmax: 98.4F Pox: 95% on RA Wt: 113 kg - Physical Exam Constitutional: NAD, awake, alert and oriented, well developed HEENT: normocephalic and atraumatic, conjunctiva clear, grossly normal vision, grossly normal hearing, MMM Neck: supple, FROM Chest: other (TTP in center of chest) Heart: RRR, normal S1/S2, no murmurs/rubs/gallops, pulses present, no edema Lungs: CTAB, no respiratory distress, good air movement, no rales/rhonchi, no wheezing Abdomen: soft, non-tender, bowel sounds present Musculoskeletal: normal structure, ROM grossly normal Neurological: no focal deficit, CN II-XII intact (grossly) Skin: no rash/lesions Heme/Lymphatic: no unusual bruising or bleeding, no purpura Psychiatric: normal mood and affect, good judgment and insight, intact recent and remote memory FMR H&P: Results - Labs Result Diagrams: 06/03/18 01:58 06/03/18 01:58 Lab results: WBC 9.1 thou/uL (4.8-10.8) 06/03/18 01:58 Hgb 12.3 g/dL (12.0-16.0) 06/03/18 01:58 Hct 36.2 % (36.0-47.0) 06/03/18 01:58 MCV 94.0 fL (78.0-98.0) 06/03/18 01:58 Plt Count 290 thou/uL (130-400) 06/03/18 01:58 Neutrophils % 65.7 % (42.0-75.0) 06/03/18 01:58 Sodium 135 mmol/L (136-145) L 06/03/18 01:58 Potassium 4.1 mmol/L (3.5-5.1) 06/03/18 01:58 Chloride 103 mmol/L (98-107) 06/03/18 01:58 Carbon Dioxide 25 mmol/L (22-29) 06/03/18 01:58 BUN 9 mg/dL (7.0-18.7) 06/03/18 01:58 Creatinine 0.83 mg/dL (0.6-1.1) 06/03/18 01:58 Glucose 98 mg/dL (70-105) 06/03/18 01:58 Calcium 9.4 mg/dL (7.8-10.44) 06/03/18 01:58 Total Bilirubin 0.2 mg/dL (0.2-1.2) 06/03/18 01:58 AST 22 U/L (5-34) 06/03/18 01:58 ALT 15 U/L (8-55) 06/03/18 01:58 Alkaline Phosphatase 68 U/L (40-150) 06/03/18 01:58 B-Natriuretic Peptide Less than 10.0 pg/mL (0-100) 06/03/18 01:58 Serum Total Protein 7.3 g/dL (6.0-8.3) 06/03/18 01:58 Albumin 3.8 g/dL (3.5-5.0) 06/03/18 01:58 Lipase 17 U/L (8-78) 06/03/18 01:58 Additional comment: Troponin - <0.010 - EKG Interpretation EKG: NSR - Radiology Interpretation Chest x-ray Status: pending FMR H&P: A/P - Problem List (1) Atypical chest pain Current Visit: No Status: Acute Code(s): R07.89 - OTHER CHEST PAIN (2) CASEY on CPAP Current Visit: Yes Status: Chronic Code(s): G47.33 - OBSTRUCTIVE SLEEP APNEA (ADULT) (PEDIATRIC); Z99.89 - DEPENDENCE ON OTHER ENABLING MACHINES AND DEVICES (3) Bipolar disorder Current Visit: Yes Status: Chronic Code(s): F31.9 - BIPOLAR DISORDER, UNSPECIFIED (4) HTN (hypertension) Current Visit: Yes Status: Chronic Code(s): I10 - ESSENTIAL (PRIMARY) HYPERTENSION (5) Hx pulmonary embolism Current Visit: Yes Status: Chronic Code(s): Z86.711 - PERSONAL HISTORY OF PULMONARY EMBOLISM (6) Hypothyroidism Current Visit: Yes Status: Chronic Code(s): E03.9 - HYPOTHYROIDISM, UNSPECIFIED (7) Lupus Current Visit: Yes Status: Chronic Code(s): L93.0 - DISCOID LUPUS ERYTHEMATOSUS - Plan Typical chest pain: - Patient presented with CC of typical sounding CP w/ usual ACS associated symptoms; yet, the duration & reproducibility make it seem less likely. EKG and initial troponin also negative for evidence of ACS. However, given patient's risk factors and the fact that the patient had already been referred by her PCP for an outpatient stress test, will make NPO for stress test later this AM. Hypothyroidism: - Aware, will resume home meds. HTN: - Aware, will resume home meds. Bipolar I: - Will resume home meds. SLE: - Will resume home meds. GERD: - Will resume home meds. CASEY on CPAP: - Will order CPAP HS. h/o DVT & PE: - Aware. h/o genital Herpes: - Will resume home meds. FMR H&P: Upper Level - Pertinent history 43F presents for 1 month of chest pain, which is describes as pressure/sharp, midsternum, worst with activity, present at every waking moment for 4 week straight, radiating down left arm and leg. Her PMH is pertinent for previous blood clot and is not on blood thinner. By EMS, she had 3x nitro that helped a bit. Got 2 mg morphine and 4 mg zofran in ER. - Pertinent findings Gen: Alert, grossly oriented HEENT: Normocephalic, vision and hearing grossly intact, midline trachea, moistmucosal membrane CV: RRR, possible murmur. No rub or gallop heard. Reproducible chest wall pain with palpation of sternum. Resp: CTA bilat GI: Normoactive, soft, non tender abd Derm: No obvious acute rash or wound Ext: No pitting edema - Plan Date/Time: 06/03/18 0352 I, [Ozzy Bro], have evaluated this patient and agree with findings/plan as outlined by international logistics manager resident. Pertinent changes/additions are listed here. 1. Atypical chest pain - Heart score of 3 for non specific EKG, age and story. - Plan, stress test - Highly consider costochondritis if stress negative. Physical exam and history would make this more likely. See international logistics manager note for chronic issues. Addendum - Attending - Attending Attestation Date/Time: 06/03/18 1240 I personally evaluated the patient and discussed the management with Dr. York/ Adali. I agree with the History, Examination, Assessment and Plan documented above with any addition or exceptions noted below. Patient here with chronic and continuous chest pain in the middle of an outpatient workup. She has been ruled out for ACS. Stress has been ordered but since she has follow up with cardiology, will see if she would prefer to continue the workup outpatient since she ate this morning and may not be able to undergo testing today. Other labs and imaging reassuring.
[2018-06-03 04:40] LABS: Troponin I Less than 0.010 ng/mL (< 0.028)
[2018-06-03] MEDS ORDERED: Ondansetron ODT 4 MG TAB PO PRN (04:50)
[2018-06-03] MEDS ORDERED: Acetaminophen 325 MG TAB PO PRN (04:50)
[2018-06-03 07:49] LABS: Troponin I Less than 0.010 ng/mL (< 0.028)
--- NOTE | 2018-06-03 08:01 | RAD ---
CHEST 1 VIEW: HISTORY: Chest pain. COMPARISON: Chest radiograph 04/21/2018. FINDINGS: Heart size is enlarged. Mild pulmonary venous congestion. No pneumothorax. No large effusion. No acute osseous abnormality. IMPRESSION: Cardiomegaly and mild pulmonary venous congestion. POS: [facility]
[2018-06-03] MEDS ORDERED: Topiramate 25 MG TAB PO SCH (09:00)
[2018-06-03] MEDS ORDERED: Apixaban 5 MG TAB PO SCH (09:00)
[2018-06-03] MEDS ORDERED: FLUoxetine HCl 20 MG CAP PO SCH (09:00)
[2018-06-03] MEDS ORDERED: Pilocarpine 5 MG TAB PO SCH (09:00)
[2018-06-03 11:43] VITALS: BMI 43.4
[2018-06-03] MEDS: Hydroxychloroquine Sulfate 200 MG TAB PO SCH ×2 (12:26→20:59)
[2018-06-03] MEDS: Amlodipine 5 MG TAB PO SCH (12:26)
[2018-06-03] MEDS: Acyclovir 400 mg Tablet PO SCH ×2 (12:31→20:59)
[2018-06-03] MEDS ORDERED: Benzonatate 100 MG CAP PO PRN (17:28)
[2018-06-03] MEDS ORDERED: Promethazine 25 MG TAB PO PRN (17:28)
[2018-06-03] MEDS: Nitroglycerin 0.4 MG TAB (25 Tab Bottle) PO PRN ×3 (20:11→20:22)
[2018-06-03] MEDS ORDERED: Prazosin HCl 1 MG CAP PO SCH (21:00)
[2018-06-03] MEDS ORDERED: Vortioxetine Hydrobromide [Trintellix] 10 MG PO SCH (21:00)
[2018-06-03] MEDS ORDERED: Aripiprazole 10 MG TAB PO SCH (21:00)
[2018-06-03] MEDS ORDERED: traZODone HCl 50 MG TAB PO SCH (21:00)
[2018-06-03 21:30] LABS: Troponin I Less than 0.010 ng/mL (< 0.028)
[2018-06-04] MEDS ORDERED: Cyclobenzaprine 10 MG TAB PO SCH (05:00)
[2018-06-04 05:46] LABS: Cardiac Risk 2.5 (Less than 4.5)
[2018-06-04] MEDS ORDERED: Levothyroxine 175 MCG TAB PO SCH (06:00)
--- NOTE | 2018-06-04 06:19 | PDOC.FM ---
- Subjective Subjective: Reports chest pain, nonexertional, not relieved with Nitro. EKG nml and trop negative this morning when pain started. Flexeril helped with pain. Also reports shortness of breath. No other night events. She will go for part 2 of her stress test today. - Objective MAR Reviewed: Yes Vital Signs & Weight: Vital Signs (12 hours) Temp Pulse Resp BP BP Pulse Ox 06/04/18 03:56 98.1 F 100 20 115/65 97 06/03/18 23:32 97.7 F 88 16 134/65 99 06/03/18 19:37 97.9 F 85 18 122/63 100 Weight Weight 104.326 kg I&O: 06/02/18 06/03/18 06/04/18 06:59 06:59 06:59 Intake Total 1350 Output Total 903 Balance 447 Result Diagrams: 06/03/18 01:58 06/03/18 01:58 Phys Exam - Physical Examination Constitutional: NAD HEENT: moist MMs Neck: supple Respiratory: no wheezing, clear to auscultation bilateral Cardiovascular: RRR, no significant murmur Gastrointestinal: soft, non-tender, positive bowel sounds Musculoskeletal: no edema Neurological: moves all 4 limbs Psychiatric: normal affect, A&O x 3 Skin: normal turgor Dx/Plan (1) Atypical chest pain Code(s): R07.89 - OTHER CHEST PAIN Status: Acute (2) Acute costochondritis Code(s): M94.0 - CHONDROCOSTAL JUNCTION SYNDROME [TIETZE] Status: Acute (3) Bipolar disorder Code(s): F31.9 - BIPOLAR DISORDER, UNSPECIFIED Status: Chronic (4) HTN (hypertension) Code(s): I10 - ESSENTIAL (PRIMARY) HYPERTENSION Status: Chronic (5) Hx pulmonary embolism Code(s): Z86.711 - PERSONAL HISTORY OF PULMONARY EMBOLISM Status: Chronic (6) Hypothyroidism Code(s): E03.9 - HYPOTHYROIDISM, UNSPECIFIED Status: Chronic (7) Lupus Code(s): L93.0 - DISCOID LUPUS ERYTHEMATOSUS Status: Chronic (8) CASEY on CPAP Code(s): G47.33 - OBSTRUCTIVE SLEEP APNEA (ADULT) (PEDIATRIC); Z99.89 - DEPENDENCE ON OTHER ENABLING MACHINES AND DEVICES Status: Chronic - Plan Plan: 43yo female presents with atypical chest pain likely 2/2 costocondritis Atypical chest pain - Trops neg x3 - EKG x2 no ST segment changes - HEART score 2 - Part 2 of stress test today Hypothyroidism - Continue home meds HTN - Continue home meds Bipolar I - Continue home meds SLE - Continue home meds GERD - Continue home meds CASEY on CPAP - Continue home meds h/o DVT & PE - Not on anticoagulation h/o genital Herpes - Continue home meds Code Status: FULL DVT ppx: SCDs PCP: CINDY Addendum - Attending - Attending Attestation Date/Time: 06/04/18 1051 I personally evaluated the patient and discussed the management with Dr. Gonzales. I agree with the History, Examination, Assessment and Plan documented above with any addition or exceptions noted below. Patient here today to complete stress testing. We do not feel her current chest pain complaint is related to ACS or cardiac in nature. Likely discharge once stress results.
[2018-06-04] MEDS ORDERED: Fluticasone Propionate Nasal Spray 16 gm Bottle NASAL SCH (09:00)
[2018-06-04] MEDS ORDERED: Vortioxetine Hydrobromide [Trintellix] 10 MG PO SCH (09:00)
[2018-06-04] MEDS: Amlodipine 5 MG TAB PO SCH (10:15)
[2018-06-04] MEDS: Hydroxychloroquine Sulfate 200 MG TAB PO SCH (10:16)
[2018-06-04] MEDS: Acyclovir 400 mg Tablet PO SCH (10:20)
--- NOTE | 2018-06-04 11:46 | NM ---
NUCLEAR MEDICINE CARDIAC STRESS WITH EJECTION FRACTION AND WALL MOTION: HISTORY: Chest pain. COMPARISON: None. TECHNIQUE: Two day protocol utilizing. Patient administered 29.8 mCi of technetium-99m sestamibi for rest imagin g and 33.0 mCi of technetium-99m sestamibi for stress imaging. Cardiac gating is performed. FINDINGS: There is homogeneous distribution of the radiotracer in the left ventricle. There is no evidence of r eversibility or fixed defects. End-diastolic volume is 95 mL. End-systolic volume is 41 mL. TID is 0.92. CARDIAC GATING: Normal motion and thickening. 57% ejection fraction. IMPRESSION: 1. No reversibility or fixed defect. 2. Normal motion and thickening. 57% ejection fraction. POS: [facility]
[2018-06-04 11:57] VITALS: BP 110/54; TEMP 97.9
[2018-06-04] MEDS ORDERED: Ketorolac Tromethamine 30 MG/ML VIAL IVP SCH (12:00)
--- NOTE | 2018-06-04 17:00 | EKG ---
Test Reason : STAT CP Blood Pressure : / mmHG Vent. Rate : 085 BPM Atrial Rate : 085 BPM P-R Int : 142 ms QRS Dur : 082 ms QT Int : 340 ms P-R-T Axes : 059 011 053 degrees QTc Int : 404 ms Normal sinus rhythm Possible Left atrial enlargement (p wave V1) Left ventricular hypertrophy Nonspecific T wave abnormality Abnormal ECG When compared with ECG of 21-APR-2018 23:54, QT has shortened Confirmed by TEJAL LEWIS ([id number]) on 06/04/2018 4:59:57 PM Referred By: SARAH BERRY *r Confirmed By:TEJAL LEWIS
--- NOTE | 2018-06-04 22:37 | DIS ---
DATE OF ADMISSION: 06/03/2018 DATE OF DISCHARGE: 06/04/2018 RESIDENT: Ruma Gonzales MD, PGY-1. ADMITTING ATTENDING: Martín Clark MD DISCHARGE ATTENDING: Martín Clark MD. CONSULTS: None. PROCEDURES: 1. Chest x-ray, cardiomegaly and mild pulmonary venous congestion. 2. Nuclear stress test. No reversibility or fixed defect, normal motion and thickening, 57% ejection fraction. DISCHARGE DIAGNOSIS: Atypical chest pain. SECONDARY DIAGNOSES: 1. Hypothyroidism. 2. Hypertension. 3. Bipolar 1. 4. Lupus. 5. Gastroesophageal reflux disease. 6. Obstructive sleep apnea. 7. History of deep venous thrombosis and pulmonary embolism. 8. History of genital herpes. DISCHARGE MEDICATIONS: 1. Acyclovir 400 mg b.i.d. 2. Amlodipine 5 mg daily. 3. Abilify 10 mg at bedtime. 4. Tessalon Perles 100 mg t.i.d. p.r.n. 5. Vitamin D2 of 50,000 units q.7 days. 6. Drisdol 1.25 mg p.o. 7. Fluticasone one spray each naris daily. 8. Hydroxychloroquine sulfate 200 mg b.i.d. 9. Levothyroxine 175 mcg daily. 10. Pantoprazole 40 mg daily. 11. Prazosin 2 mg at bedtime. 12. Phenergan 12.5 mg q.4 hours p.r.n. 13. Trazodone 100 mg at bedtime. HOSPITAL COURSE: Ms. Bolden is a 43-year-old female, who presented with left- sided chest pain and pressure, worsened with exertion and a/w shortness of breath. Her HEART score was 2. Troponins were negative x3. EKG, no ST-segment changes x2. Stress test, no reversible ischemia. As her chronic medical conditions of hypothyroidism, hypertension, bipolar, lupus, GERD, obstructive sleep apnea and history of genital herpes, she was continued on her home medications and these were stable throughout the course of her hospitalization. DISPOSITION: Stable. DISCHARGE INSTRUCTIONS: 1. Location: Home. 2. Diet: Regular. 3. Activity: No restrictions. 4. Followup: Follow up with [place] [facility] and physician in 5 to 7 days. Job ID: [id number] [facility]
[2018-06-07] MEDS ORDERED: Ergocalciferol 1.25 MG(50,000 UNITS) CAP PO SCH (09:00)
[2018-06-10] MEDS ORDERED: Apixaban 5 MG TAB PO SCH (09:00)
== END 2018-06-04 15:03 | disposition home or self-care (01) ==
LOC: ERS 01:37 → ERHOLD 03:10 → 2SW 11:02
PROVIDERS: ADMIT Emergency Medicine; ATTEND Emergency Medicine
DX: R07.89 Other chest pain (principal); I10 Essential (primary) hypertension; E03.9 Hypothyroidism, unspecified; F31.9 Bipolar disorder, unspecified; M32.9 Systemic lupus erythematosus, unspecified; K21.9 Gastro-esophageal reflux disease without esophagitis; G47.33 Obstructive sleep apnea (adult) (pediatric); E66.9 Obesity, unspecified; Z68.41 Body mass index [BMI] 40.0-44.9, adult; F41.9 Anxiety disorder, unspecified; A60.00 Herpesviral infection of urogenital system, unspecified; Z86.711 Personal history of pulmonary embolism; Z99.89 Dependence on other enabling machines and devices; Z88.2 Allergy status to sulfonamides; Z91.018 Allergy to other foods; Z79.51 Long term (current) use of inhaled steroids; Z79.899 Other long term (current) drug therapy; Z98.890 Other specified postprocedural states
CPT/HCPCS: 36415; 71045; 78452; 80053; 80061; 83690; 83880; 84484; 85025; 93005; 93010; 93017; 94760; 96374; 96375; A9500; G0378; J0153; J1885; J2270; J2405

== ENCOUNTER 2018-06-18 15:42 | Emergency (ER) | payer OTHER ==
[2018-06-18 16:31] LABS: Bilirubin Negative (Negative); Blood, Urine Negative (Negative); Clarity CLEAR (Clear); Glucose, Urine (Dipstick) Negative (Negative); Leukocyte Negative (Negative); Nitrite Negative (Negative); Protein, Urine (Dipstick) Negative (Neg-Trace); Specific Gravity, Urine 1.026 (1.002-1.036); Urobilinogen 0.2 mg/dL (0.2-1.0)
[2018-06-18] MEDS ORDERED: Ondansetron ODT 4 MG TAB ONE (17:36)
[2018-06-18] MEDS ORDERED: Ketorolac Tromethamine 30 MG/ML VIAL ONE (17:36)
[2018-06-18 17:46] LABS: #Eosinphils 0.1 thou/uL (0.0-0.7); #Lymphocytes 1.7 thou/uL (1.20-3.40); #Monocytes 0.4 thou/uL (0.11-0.59); #Neutrophils 4.7 thou/uL (1.40-6.50); %Basophils 0.3 % (0.0-1.0); %Eosinophils 1.4 % (0.0-10.0); %Lymphocytes 24.6 % (21.0-51.0); %Monocytes 6.1 % (0.0-10.0); %Neutrophils 67.6 % (42.0-75.0); Mean Corpuscular HGB CONC 33.9 g/dL (32.0-36.0); Mean Corpuscular Hemoglobin 32.3 pg (27.0-31.0); Mean Corpuscular Volume 95.4 fL (78.0-98.0); Mean Platelet Volume 7.7 fL (7.4-10.4); Platelet Count 299 thou/uL (130-400); RBC Distribution Width 11.9 % (11.5-14.5); Red Blood Cell (RBC) Count 4.03 mill/uL (4.20-5.40)
[2018-06-18 17:58] LABS: Pregnancy Test - Urine (BHCG) Negative (Negative); Pregu Control Background? CLEAR/WHITE (CLR/WHITE); Pregu Control Bar Appear? YES (CONTROL BAR); Specific Gravity 1.026 (1.002-1.036)
[2018-06-18 18:02] LABS: ALT (SGPT) 12 U/L (8-55); AST (SGOT) 16 U/L (5-34); Alkaline Phosphatase 69 U/L (40-150); Anion Gap 16 mmol/L (10-20); BUN (Urea Nitrogen) 10 mg/dL (7.0-18.7); Bilirubin, Total 0.4 mg/dL (0.2-1.2); Calc. Creatinine Clearance 0 mL/min (70-130); Calcium 9.8 mg/dL (7.8-10.44); Carbon Dioxide 21 mmol/L (22-29); Chloride 105 mmol/L (98-107); Estimated GFR-MDRD 89; Globulin 3.7 g/dL (2.4-3.5); Glucose 96 mg/dL (70-105); Lipase 28 U/L (8-78); Potassium 3.8 mmol/L (3.5-5.1); Protein, Total 7.7 g/dL (6.0-8.3); Sodium 138 mmol/L (136-145)
== END 2018-06-18 18:36 | disposition home or self-care (01) ==
LOC: ERS 15:42
DX: R10.30 Lower abdominal pain, unspecified (principal); I10 Essential (primary) hypertension; E03.9 Hypothyroidism, unspecified; Z86.711 Personal history of pulmonary embolism; F31.9 Bipolar disorder, unspecified; Z79.899 Other long term (current) drug therapy
CPT/HCPCS: 36415; 80053; 81003; 81025; 83690; 85025; 96372; J1885; Q0162

== ENCOUNTER 2018-08-03 00:08 | Outpatient (CLI) | payer OTHER ==
[2018-08-03 17:43] LABS: Hemoglobin 12.2 g/dL (12.0-16.0); Mean Corpuscular Hemoglobin 32.3 pg (27.0-31.0); Mean Platelet Volume 8.2 fL (7.4-10.4); Platelet Count 270 thou/uL (130-400); RBC Distribution Width 11.4 % (11.5-14.5); Red Blood Cell (RBC) Count 3.79 mill/uL (4.20-5.40); White Blood Cell (WBC) Count 7.9 thou/uL (4.8-10.8)
[2018-08-03 17:44] LABS: BHCG - Serum Negative (NEGATIVE); Pregs Control Background? CLEAR/WHITE (CLR/WHITE); Pregs Control Bar Appear? YES (CONTROL BAR)
[2018-08-03 18:03] LABS: ALT (SGPT) 9 U/L (8-55); AST (SGOT) 13 U/L (5-34); Albumin 3.9 g/dL (3.5-5.0); Alkaline Phosphatase 62 U/L (40-150); Anion Gap 14 mmol/L (10-20); BUN (Urea Nitrogen) 13 mg/dL (7.0-18.7); Bilirubin, Direct 0.1 mg/dL (0.1-0.3); Bilirubin, Total 0.3 mg/dL (0.2-1.2); Calc. Creatinine Clearance 0 mL/min (70-130); Calcium 9.4 mg/dL (7.8-10.44); Carbon Dioxide 23 mmol/L (22-29); Chloride 104 mmol/L (98-107); Estimated GFR-MDRD Greater than 90; Glucose 88 mg/dL (70-105); Potassium 4.3 mmol/L (3.5-5.1); Protein, Total 6.9 g/dL (6.0-8.3); Sodium 137 mmol/L (136-145)
== END 2018-08-03 00:09 | disposition home or self-care (01) ==
LOC: LABBT 00:08
PROVIDERS: ATTEND Student in an Organized Health Care Education/Training Program
DX: Z01.812 Encounter for preprocedural laboratory examination (principal); D25.9 Leiomyoma of uterus, unspecified; N92.0 Excessive and frequent menstruation with regular cycle; N94.6 Dysmenorrhea, unspecified; R10.2 Pelvic and perineal pain
CPT/HCPCS: 80053; 80076; 84703; 85027; 86850; 86900; 86901

== ENCOUNTER 2018-08-03 16:15 | Inpatient (IN) | payer OTHER ==
[2018-08-03 17:25] VITALS: BMI 46.3
[2018-08-10] MEDS ORDERED: Gabapentin 300 MG CAP ONE (08:05)
[2018-08-10] MEDS ORDERED: Famotidine/PF 20 mg/2ml Vial ONE (08:05)
[2018-08-10] MEDS ORDERED: CeleCOXIB 100 MG CAP ONE (08:06)
[2018-08-10] MEDS ORDERED: Promethazine HCl 25 MG/ML VIAL ONE (08:46)
[2018-08-10] MEDS ORDERED: Bupivacaine HCl 0.5%/Epinephrine 1:200,000/PF 30 ml Vial ONE (09:47)
[2018-08-10] MEDS ORDERED: Heparin 5,000 UNITS/ML VIAL ONE (10:00)
[2018-08-10] MEDS ORDERED: Fentanyl 250 MCG/5 ML VIAL ONE (10:02)
[2018-08-10] MEDS ORDERED: HYDROmorphone 2 MG/ML VIAL SLOW IVP PRN (13:37)
[2018-08-10] MEDS ORDERED: Promethazine HCl 25 MG/ML VIAL SLOW IVP PRN (13:37)
[2018-08-10] MEDS ORDERED: Ondansetron HCl/PF 4 MG/2 ML Vial IVP PRN (13:37)
[2018-08-10] MEDS ORDERED: Promethazine HCl 25 MG/ML VIAL IM PRN ×2 (13:37→13:42)
[2018-08-10] MEDS ORDERED: Fentanyl 100 MCG/2 ML VIAL SLOW IVP PRN (13:42)
[2018-08-10] MEDS ORDERED: Zolpidem Tartrate 5 MG TAB PO PRN (13:42)
[2018-08-10] MEDS ORDERED: Lactated Ringer's 1,000 ML IV SCH (13:42)
[2018-08-10] MEDS ORDERED: Bisacodyl 10 MG SUPP PR PRN (13:42)
[2018-08-10] MEDS ORDERED: Ondansetron PF 4 MG/2 ML Vial IVP PRN (13:42)
[2018-08-10] MEDS ORDERED: HYDROcodone/Acetaminophen 5/325 mg Tablet PO PRN (13:42)
[2018-08-10] MEDS ORDERED: diphenhydrAMINE 25 MG CAP PO PRN (13:42)
[2018-08-10] MEDS ORDERED: Fentanyl 100 MCG/2 ML VIAL ONE (14:19)
[2018-08-10] MEDS: Ketorolac Tromethamine 30 MG/ML VIAL IVP SCH (16:50)
[2018-08-10] MEDS: HYDROcodone/Acetaminophen 5/325 mg Tablet PO PRN (20:06)
[2018-08-10] MEDS: Simethicone Chewable 80 MG TAB PO PRN (20:06)
[2018-08-10] MEDS: Hydroxychloroquine Sulfate 200 MG TAB PO SCH ×2 (22:33→22:36)
[2018-08-10] MEDS: Docusate Calcium (SURFAK) 240 MG CAP PO SCH (22:33)
[2018-08-11] MEDS: Ketorolac Tromethamine 30 MG/ML VIAL IVP SCH ×2 (00:10→06:11)
[2018-08-11 06:00] LABS: Hemoglobin 11.1 g/dL (12.0-16.0); Mean Corpuscular HGB CONC 33.5 g/dL (32.0-36.0); Mean Corpuscular Volume 95.6 fL (78.0-98.0); Mean Platelet Volume 7.9 fL (7.4-10.4); Platelet Count 292 thou/uL (130-400); RBC Distribution Width 11.8 % (11.5-14.5); Red Blood Cell (RBC) Count 3.48 mill/uL (4.20-5.40); White Blood Cell (WBC) Count 10.9 thou/uL (4.8-10.8)
[2018-08-11] MEDS: HYDROcodone/Acetaminophen 5/325 mg Tablet PO PRN (06:16)
[2018-08-11] MEDS: Levothyroxine 175 MCG TAB PO SCH (08:28)
[2018-08-11] MEDS: Aripiprazole 10 MG TAB PO SCH (08:29)
[2018-08-11] MEDS: Hydroxychloroquine Sulfate 200 MG TAB PO SCH ×2 (08:29→21:45)
[2018-08-11] MEDS: Amlodipine 10 MG TAB PO SCH (08:29)
[2018-08-11] MEDS: Docusate Calcium (SURFAK) 240 MG CAP PO SCH ×2 (08:32→21:45)
[2018-08-11] MEDS ORDERED: HYDROcodone/Acetaminophen 7.5/325 mg Tablet PO PRN (09:06)
--- NOTE | 2018-08-11 09:48 | PDOC.EVN ---
Event Note - Event Note Event Note: POD1 S: C/o uncontrolled pain, states 2 tab of norco is not helping pain, throbbing, steven when getting up. No N/V, slight decr appetite this am. No flatus. Voiding. Has not ambulated in hallway O: VSSAF NAD Unlabored resp soft/appttp/ND/BS+ Inc c/d/i No e/c/c Hgb 11.1 A: POD1 s/p RATLH MATT P: Incr norco dosing, start scheduled ibuprofen, use heating pad, ambulate in hallway. Monitor pain, possible DC later today or tomorrow. Lovenox for DVT ppx Cont home meds for bipolar CHTN, RA
[2018-08-11] MEDS: HYDROcodone/Acetaminophen 7.5/325 mg Tablet PO PRN ×2 (10:08→15:28)
[2018-08-11] MEDS: Enoxaparin Sodium 40 MG/0.4 ML SYRINGE SC SCH (10:09)
--- NOTE | 2018-08-11 17:31 | OP ---
DATE OF PROCEDURE: 08/10/2018 PREOPERATIVE DIAGNOSES: 1. Uterine fibroids. 2. Menorrhagia. 3. Pelvic pain. POSTOPERATIVE DIAGNOSES: 1. Uterine fibroids. 2. Menorrhagia. 3. Pelvic pain. PROCEDURES PERFORMED: Robotic-assisted total laparoscopic hysterectomy, bilateral salpingectomy, lysis of adhesions, and cystoscopy. ANESTHESIA: General endotracheal. COURT DEPUTY SURGEONS: Trevor Ji DO MS, and Jamee Staples PA-C. ESTIMATED BLOOD LOSS: 150 mL. IVF: 1 L of crystalloid. URINE OUTPUT: 510 mL of clear urine. COMPLICATIONS: None. DRAINS: Mitchell catheter. PATHOLOGY: Uterus, cervix, bilateral fallopian tubes. FINDINGS: On exam under anesthesia, an enlarged 14-week size uterus was noted. On intraabdominal survey, there was a large posterior fibroid. The uterus was adherent to the anterior abdominal wall as well as the bladder and lateral pelvic sidewalls from the round ligament down. The bladder was adherent on the uterus. The omentum was adherent to the anterior abdominal wall as well as to the uterus. The ovaries were normal bilaterally. There was a small ovarian cyst on the right ovary that was aspirated with clear fluid. The fallopian tubes were also normal appearing as was the cervix. There were dense adhesions of the omentum to the upper abdomen anteriorly. DESCRIPTION OF PROCEDURE: The patient was taken to the operating room where general anesthesia was obtained difficulty. The patient was prepped and draped in a sterile fashion in a dorsal lithotomy position. A Mitchell catheter was placed in the bladder, and speculum was placed in the vagina. Anterior lip of the cervix was grasped with a single-tooth tenaculum. The uterus was then sounded to 8 cm, and the Dina manipulator was assembled with an 8 cm tip and a 4 cm colpotomizer ring. The Dina was placed into the uterus and colpotomizer ring was advanced, fit snugly around the cervix. The tenaculum and speculum were removed out of the vagina. Legs were placed in low lithotomy. Attention was turned to the abdomen. A left upper quadrant entry was chosen secondary to her prior C-sections. A 5-mm skin incision was made in the midclavicular line approximately 2 fingerbreadths below the rib. The Veress needle was passed into the abdomen several times, finally achieving an opening pressure of 8 mmHg. Pneumoperitoneum was then obtained without difficulty. The 5-mm trocar was then passed optically into the abdomen with a 5-mm scope, and there were the adhesions of the omentum to the umbilicus and lower abdomen. At that point, the 12-mm camera port was placed in the umbilicus after infiltrating with 0.5% Marcaine with epi, making a 12-mm skin incision. This was done under direct visualization. The right and left lower quadrant 8-mm robotic trocars were placed under direct visualization after infiltrating with anesthetic and making a skin incision. The 5-mm port was then extended to accommodate the 11-mm port, and this was placed under direct visualization. Steep Trendelenburg was then obtained. The robot was docked. The right robotic arm contained monopolar scissors. The left robotic arm contained a fenestrated bipolar. The omental adhesions were then addressed to the anterior abdominal wall. These were stabilized with the fenestrated, and incision was made and clear windows between the omentum and anterior peritoneum. Hemostasis was achieved with the fenestrated as well as with monopolar cautery. The dissection of the omentum off the anterior abdominal wall took approximately 15 minutes. Subsequently, the omentum was also adherent to the anterior uterus as well as to the left adnexa. This was taken down with cautery. Once the left fallopian tube was accessible, this was grasped and elevated. The mesosalpinx was cauterized and transected, and then the fallopian tube was clamped across, cauterized, transected, and removed out of the abdomen. The utero-ovarian was cauterized x2 with the fenestrated and incised in the middle with the scissors on cautery. Clamp, cautery, and transection were performed down the mesovarium and to the round ligament. However, the round ligament was not necessarily present. There were adhesions of the bladder and vesicouterine peritoneum up over the round ligament. Therefore, this was addressed by undermining with the fenestrated, layering out with pushing and spreading as well as incising with the scissors on cautery. The dissection was difficult as there were multiple adhesions, and the bladder was backfilled, and it was noted that the actual bladder was adherent, not just peritoneum or adhesions from the bladder. Therefore, the attention was turned to the right side where the fallopian tube was grasped and elevated. The ureter was identified on that side transperitoneally, and this was running more anteriorly than what is quite normal. The fallopian tube was grasped and elevated. The mesosalpinx was clamped, cauterized, transected, and then clamped across, cut and removed out of the abdomen. The utero-ovarian was cauterized x2. There was some bleeding with incision of the utero-ovarian secondary to it being very narrow and the ovary being very close to the uterus. Hemostasis was achieved with the fenestrated. The mesovarium was clamped, cauterized, and transected. The round ligament was identifiable in this level, and secondary to the bladder being adherent just below the level of the round ligament, the peritoneum was opened up laterally on the round ligament, and the retroperitoneum was dissected underneath the round ligament, and a window was identified inferiorly to the round ligament that was made, and the round was clamped across, cauterized, and then transected. This allowed further visualization of any potential bladder mucosa and retroperitoneal dissection of the uterine vessels. During this dissection, the posterior leaf of the broad ligament was carefully dropped down, and the ureter was identified multiple times during this portion of the procedure as the uterus had a thick dense adhesion to the left side that caused the uterus to actually turn toward to the left side. This caused the ureter to be pulled medially where the ureter was identified during this dissection crossing underneath the uterine artery just below the level of the internal cervical os several centimeters or so away from where the normal uterine pedicle incision would be. This was observed and carefully avoided any injury or lateral thermal spread to this area. At that time, attention was turned to the bladder flap anteriorly. This was layered out carefully. The bladder was backfilled, and incisions were made. During the dissection secondary to wanting to avoid bladder injury, the uterus was entered into during the dissection secondary to unclear planes from the dense scarring. This was hemostatic with the fenestrated, and the bladder was continued to be taken down, and dense bladder adhesions were noted. Taking the bladder down took approximately extra 30 minutes, and so in total, lysis of adhesions took 45 minutes. Once the bladder was down, the round ligament was identifiable on the left side. This was clamped, cauterized, and transected. That allowed access to the uterine vessels on that side. The ureter on that side was not pulled over medially, was laterally in its normal position. The vessels were adequately skeletonized. The bladder was taken down off the colpotomizer ring. Laterally, there was just a lot of bladder scarred up on the left side. The uterine vessels were clamped and cauterized multiple times. The right side was further developed as well, ensuring that the bladder was taken down below the level of the colpotomizer ring and below the level of the uterine vessels. The ureter was noted to fall away as these things were dissected out. The uterine vessels on the right side were clamped and cauterized well above the level of the internal os at least 2 cm to avoid any lateral thermal spread to the ureter. They were then incised higher up as well, and then the pedicle was dissected off the lateral uterus to allow this to fall away as well as the ureter to fall away. Once the bladder had been taken down adequately, the anterior colpotomy was performed and carried around completing posteriorly. The uterus was then removed through the vagina with difficulty secondary to the large posterior fibroid, and hemostasis was achieved of the vaginal cuff. The vaginal cuff was irrigated, and then the scissors were traded out for the needle snaker tractor driver. The cuff was closed with a 2-0 STRATAFIX suture in a running fashion with excellent closure and reapproximation and ran back for an additional layer. The needle was removed out of the abdomen, and irrigation was performed as well as low pressure check. Decision was made for cystoscopy secondary to the anatomy that was observed during that time and the extensive dissection on the bladder. At that time, Tisseel was placed over the pedicles, and the robot was then undocked. 70-degree cystoscope was then assembled. The Mitchell catheter was removed out of the bladder, and the cysto was performed. The urethra was noted to be normal. The bladder had smooth mucosa. No masses or lesions. There were no defects within the bladder and no injury during the surgery. The ureters were then examined bilaterally, and vigorous efflux from both ureters was noted in a brief period of time. The cystoscope was then removed. The Mitchell catheter was reinserted, and the fascia of the umbilical port was closed with an 0 Vicryl in a [id number] fashion. The skin was closed with a 4-0 Monocryl in subcuticular fashion. Dermabond was applied. The vaginal cuff was checked and noted to be hemostatic. The patient tolerated the procedure well. Sponge and needle counts were correct x2. The patient was taken to recovery room in stable condition. Job ID: [id number]
[2018-08-11] MEDS: Ibuprofen 800 MG TAB PO SCH (21:45)
[2018-08-11] MEDS: Simethicone Chewable 80 MG TAB PO PRN (21:45)
[2018-08-12] MEDS: HYDROcodone/Acetaminophen 7.5/325 mg Tablet PO PRN ×2 (00:02→04:59)
[2018-08-12] MEDS: Levothyroxine 175 MCG TAB PO SCH (05:00)
[2018-08-12] MEDS: Ibuprofen 800 MG TAB PO SCH (05:00)
[2018-08-12] MEDS: Aripiprazole 10 MG TAB PO SCH (09:01)
[2018-08-12] MEDS: Docusate Calcium (SURFAK) 240 MG CAP PO SCH (09:01)
[2018-08-12] MEDS: Enoxaparin Sodium 40 MG/0.4 ML SYRINGE SC SCH (09:01)
[2018-08-12] MEDS: Hydroxychloroquine Sulfate 200 MG TAB PO SCH (09:01)
[2018-08-12] MEDS: Amlodipine 10 MG TAB PO SCH (09:01)
[2018-08-12 10:02] LABS: Bilirubin Negative (Negative); Blood, Urine Moderate (Negative); Clarity CLEAR (Clear); Glucose, Urine (Dipstick) Negative (Negative); Leukocyte Negative (Negative); Nitrite Negative (Negative); Protein, Urine (Dipstick) Negative (Neg-Trace); Specific Gravity, Urine 1.012 (1.002-1.036); pH, Urine 6.5 (5.0-9.0)
[2018-08-12 10:04] LABS: Bacteria/HPF None Seen HPF (None Seen); Hyaline Casts/LPF 0-3 HYALINE CAST LPF (0-3 Hyaline); Pathc Cast-AUWi Flag 0.68 (0-2.49); WBC/HPF 0-3 HPF (0-3)
--- NOTE | 2018-08-12 10:29 | PDOC.EVN ---
Event Note - Event Note Event Note: POD2 S: States pain is still present despite use of heating pad and norco 7.5. Pt has pressure in vaginal and rectal area, steven with urination. Feels like she needs to have BM but cant. Still some pressure/burning with urination. Jacquie po , +flatus. Vag spotting O: VSSAF NAD RRR CTAB S/appttp/BS+ Inc c/d/i A: POD2 s/p BASILIO GUTIERREZ P: Met all postop milestones, pain is manageable and exam is benign, discussed expectation that she will have some pain even with pain meds. Disc home mgmt of pain medications. Advised pt to DC norco as soon as possible since this causes constipation. Should also cont stool softer prn laxatives at home. GI: suppository for BM : check UA/UC Dispo: DC home FU 2 weeks, cont all home meds as well.
[2018-08-12 12:12] VITALS: BP 120/56; TEMP 98.9
== END 2018-08-12 13:15 | disposition home or self-care (01) | DRG 742 ==
LOC: SURG A 08-10 07:46 → 3SE 08-10 15:55
PROVIDERS: ADMIT Student in an Organized Health Care Education/Training Program; ATTEND Student in an Organized Health Care Education/Training Program
PROC: 0UT9FZZ Resection of Uterus, Via Natural or Artificial Opening With Percutaneous Endoscopic Assistance (ICD-10-PCS; principal; 2018-08-10)
PROC: 0UT7FZZ Resection of Bilateral Fallopian Tubes, Via Natural or Artificial Opening With Percutaneous Endoscopic Assistance (ICD-10-PCS; 2018-08-10)
PROC: 0UT2FZZ Resection of Bilateral Ovaries, Via Natural or Artificial Opening With Percutaneous Endoscopic Assistance (ICD-10-PCS; 2018-08-10)
PROC: 8E0W4CZ Robotic Assisted Procedure of Trunk Region, Percutaneous Endoscopic Approach (ICD-10-PCS; 2018-08-10)
DX: D25.9 Leiomyoma of uterus, unspecified (principal); Z68.42 Body mass index [BMI] 45.0-49.9, adult; N92.0 Excessive and frequent menstruation with regular cycle; N94.6 Dysmenorrhea, unspecified; E66.9 Obesity, unspecified; Z88.2 Allergy status to sulfonamides
CPT/HCPCS: 36415; 81003; 81015; 85027; 87086; 88307; J0670; J0690; J1644; J1650; J1885; J2550; J3010; S0028

== ENCOUNTER 2018-10-01 10:46 | Emergency (ER) | payer OTHER | END 2018-10-01 13:13 | disposition home or self-care (01) | LOC: ERS 10:46 | DX: J06.9 Acute upper respiratory infection, unspecified (principal); I10 Essential (primary) hypertension; E03.9 Hypothyroidism, unspecified; Z86.711 Personal history of pulmonary embolism; F31.9 Bipolar disorder, unspecified; Z79.01 Long term (current) use of anticoagulants; Z79.899 Other long term (current) drug therapy | CPT/HCPCS: 99281 ==

== ENCOUNTER 2018-10-28 15:14 | Emergency (ER) | payer OTHER | END 2018-10-28 16:00 | disposition home or self-care (01) | LOC: ERS 15:14 | DX: J02.9 Acute pharyngitis, unspecified (principal); I10 Essential (primary) hypertension; E03.9 Hypothyroidism, unspecified; M06.9 Rheumatoid arthritis, unspecified; F31.9 Bipolar disorder, unspecified; Z79.899 Other long term (current) drug therapy; Z86.711 Personal history of pulmonary embolism | CPT/HCPCS: 99281 ==

== ENCOUNTER 2019-04-12 06:35 | Day surgery (SDC) | payer OTHER ==
[2019-04-11 09:48] VITALS: BMI 47.7
[2019-04-12] MEDS ORDERED: Lidocaine 1% PF 5 ML VIAL ONE (10:23)
[2019-04-12] MEDS ORDERED: PROPOFOL 200 MG/20 ML VIAL ONE (10:23)
--- NOTE | 2019-04-12 11:36 | OP ---
DATE OF PROCEDURE: 04/12/2019 PROCEDURE PERFORMED: Esophagogastroduodenoscopy with biopsy. PREOPERATIVE DIAGNOSES: 44-year-old female with chronic acid reflux, history of dysphagia, some fullness in the throat, undergoing esophagogastroduodenoscopy. POSTOPERATIVE DIAGNOSES: 1. Normal vocal cords. 2. Normal esophageal mucosa throughout except for mild mucosal hyperemia in distal esophagus. 3. No esophageal stricture seen. 4. Antral gastritis. DESCRIPTION OF PROCEDURE: The patient was placed on her left lateral position and was given sedation by Anesthesia Department. A Pentax video gastroscope under direct vision passed down the oropharynx past the GE junction into the stomach and subsequently into the descending duodenum. The esophageal mucosa appeared normal throughout the esophagus. The vocal cords actually appeared very healthy. There was no esophageal stricture seen. The scope was a therapeutic scope, which measured probably about 38 Ecu[place]orean in diameter. This was easily advanced to stomach. Retroflexion failed to show any pathology in fundus or cardia. The gastric body had no lesion. The gastric antrum showed focal previous edema and erythema. Biopsy obtained of the gastric antrum and gastric body. The duodenum including the bulb and descending part, no lesion. The stomach decompressed and scope removed. Attempt was made to pass a 52-Ecuadorean Trevino dilator empirically. The dilator was passed past the upper esophageal sphincter into the esophagus from a distance of 30 cm. No resistance encountered. DISCHARGE PLANNING: This 44-year-old female with chronic acid reflux, comes for EGD because of dysphagia and also some fullness. The EGD showed no pathology in the esophagus. Did have mild antral gastritis. She underwent biopsy of the antrum. The patient did well postprocedure and being discharged home. DISCHARGE RECOMMENDATION: 1. Resume all medications as before. 2. Await gastric biopsy and decide further treatment. Job ID: [id number]
== END 2019-04-12 11:22 | disposition home or self-care (01) ==
LOC: SDC 06:35
PROVIDERS: ATTEND Internal Medicine Gastroenterology
PROC: 0DB68ZX Excision of Stomach, Via Natural or Artificial Opening Endoscopic, Diagnostic (ICD-10-PCS; principal; 2019-04-12)
DX: K21.9 Gastro-esophageal reflux disease without esophagitis (principal); K29.70 Gastritis, unspecified, without bleeding; K31.89 Other diseases of stomach and duodenum; Z88.2 Allergy status to sulfonamides; Z91.018 Allergy to other foods
CPT/HCPCS: 88305; 88312; J2001; J2704

== ENCOUNTER 2019-06-17 14:44 | Emergency (ER) | payer OTHER ==
--- NOTE | 2019-06-17 17:18 | RAD ---
EXAM: CHEST TWO VIEWS 06/17/2019 5:16 PM HISTORY: Flulike symptoms COMPARISON: July 03, 2005 FINDINGS: Lungs: No acute airspace consolidation. Heart: Normal in size and contour. Pulmonary Vessels: Normal. Costophrenic Angles: Clear. Pneumothorax: None. Osseous Structures: Intact. Additional Findings: None. IMPRESSION: No significant acute intrathoracic disease.
[2019-06-17] MEDS ORDERED: Ibuprofen 200 MG TAB ONE (17:47)
== END 2019-06-17 17:50 | disposition home or self-care (01) ==
LOC: ERS 14:44
DX: J11.1 Influenza due to unidentified influenza virus with other respiratory manifestations (principal); I10 Essential (primary) hypertension; M06.9 Rheumatoid arthritis, unspecified; E03.9 Hypothyroidism, unspecified; Z86.711 Personal history of pulmonary embolism; F31.9 Bipolar disorder, unspecified; Z79.899 Other long term (current) drug therapy
CPT/HCPCS: 71046; 87804

== ENCOUNTER 2019-06-19 13:15 | Emergency (ER) | payer OTHER ==
[2019-06-19] MEDS ORDERED: Ibuprofen 200 MG TAB ONE (14:48)
[2019-06-19] MEDS ORDERED: Metoclopramide HCl 10 MG/2 ML VIAL ONE (14:48)
[2019-06-19] MEDS ORDERED: Metoclopramide HCl 10 MG TAB ONE (14:49)
== END 2019-06-19 14:56 | disposition home or self-care (01) ==
LOC: ERS 13:15
DX: J10.1 Influenza due to other identified influenza virus with other respiratory manifestations (principal); I10 Essential (primary) hypertension; E03.9 Hypothyroidism, unspecified; I00 Rheumatic fever without heart involvement; F32.9 Major depressive disorder, single episode, unspecified; F41.9 Anxiety disorder, unspecified; Z79.899 Other long term (current) drug therapy
CPT/HCPCS: 87804; 99284; J2765

== ENCOUNTER 2020-12-31 18:17 | Emergency (ER) | payer OTHER | END 2020-12-31 21:22 | disposition home or self-care (01) | LOC: ERS 18:17 | DX: M79.662 Pain in left lower leg (principal); M79.661 Pain in right lower leg; M32.9 Systemic lupus erythematosus, unspecified | CPT/HCPCS: 99283 ==

== ENCOUNTER 2022-04-09 11:17 | Outpatient (CLI) | payer OTHER | END 2022-04-09 11:18 | disposition home or self-care (01) | LOC: BICMAMMO 11:17 | PROVIDERS: ATTEND Family Medicine | DX: Z12.31 Encounter for screening mammogram for malignant neoplasm of breast (principal) | CPT/HCPCS: 77067 ==

== ENCOUNTER 2023-03-17 17:27 | Emergency (ER) | payer OTHER | END 2023-03-17 18:31 | LOC: ERS 17:27 | DX: M54.50 Low back pain, unspecified (principal); H10.9 Unspecified conjunctivitis; R05.9 Cough, unspecified; G62.9 Polyneuropathy, unspecified | CPT/HCPCS: 99283 ==

== ENCOUNTER 2023-05-12 19:37 | Emergency (ER) | payer OTHER ==
[2023-05-12] MEDS ORDERED: Meclizine HCl 25 MG TAB ONE (20:17)
[2023-05-12] MEDS ORDERED: Ondansetron ODT 4 MG TAB ONE (20:18)
[2023-05-12 20:33] LABS: #Basophils 0.1 thou/uL (0.0-0.2); #Eosinphils 0.2 thou/uL (0.0-0.7); #Monocytes 0.7 thou/uL (0.11-0.59); #Neutrophils 4.8 thou/uL (1.40-6.50); %Basophils 0.6 % (0.0-1.0); %Eosinophils 2.3 % (0.0-10.0); %Monocytes 8.6 % (0.0-10.0); %Neutrophils 58.3 % (42.0-75.0); Hematocrit 38.3 % (36.0-47.0); Hemoglobin 12.8 g/dL (12.0-16.0); Mean Corpuscular HGB CONC 33.4 g/dL (32.0-36.0); Mean Corpuscular Volume 92.7 fl (78.0-98.0); Mean Platelet Volume 10.6 fL (7.4-10.4); Platelet Count 328 10x3/uL (130-400); RBC Distribution Width 13.4 % (11.5-14.5); Red Blood Cell (RBC) Count 4.13 mill/uL (4.20-5.40); White Blood Cell (WBC) Count 8.3 10x3/uL (4.8-10.8)
[2023-05-12 20:54] LABS: ALT (SGPT) 8 U/L (8-55); AST (SGOT) 14 U/L (5-34); Alkaline Phosphatase 90 U/L (40-110); Anion Gap 12 mmol/L (10-20); BUN (Urea Nitrogen) 8 mg/dL (7.0-18.7); Bilirubin, Total 0.4 mg/dL (0.2-1.2); Calc. Creatinine Clearance 0 mL/min (70-130); Calcium 9.4 mg/dL (7.8-10.44); Carbon Dioxide 27 mmol/L (22-29); Chloride 103 mmol/L (98-107); Estimated GFR 88; Globulin 3.1 g/dL (2.4-3.5); Glucose 86 mg/dL (70-105); Potassium 3.3 mmol/L (3.5-5.1); Protein, Total 7.1 g/dL (6.0-8.3); Sodium 139 mmol/L (136-145)
== END 2023-05-12 21:45 | disposition home or self-care (01) ==
LOC: ERS 19:37
DX: R11.2 Nausea with vomiting, unspecified (principal); E87.6 Hypokalemia
CPT/HCPCS: 36415; 80053; 85025; 99284; Q0162

== ENCOUNTER 2023-06-19 15:42 | Outpatient (CLI) | payer OTHER | END 2023-06-19 15:43 | disposition home or self-care (01) | LOC: BICMAMMO 15:42 | PROVIDERS: ATTEND Nurse Practitioner Family | DX: Z12.31 Encounter for screening mammogram for malignant neoplasm of breast (principal) | CPT/HCPCS: 77067 ==

== ENCOUNTER 2023-11-05 15:55 | Emergency (ER) | payer OTHER ==
[2023-11-05 16:47] LABS: #Basophils Less than 0.03 10x3/uL (0.0-0.2); %Basophils 0.3 % (0.0-1.0); %Eosinophils 1.3 % (0.0-10.0); %Lymphocytes 29.5 % (21.0-51.0); %Neutrophils 62.6 % (42.0-75.0); Hematocrit 39.9 % (36.0-47.0); Hemoglobin 13.6 g/dL (12.0-16.0); Mean Corpuscular HGB CONC 34.1 g/dL (32.0-36.0); Mean Corpuscular Volume 90.9 fL (78.0-98.0); Mean Platelet Volume 10.9 fL (7.4-10.4); Platelet Count 299 10x3/uL (130-400); RBC Distribution Width 13.2 % (11.5-14.5); Red Blood Cell (RBC) Count 4.39 mill/uL (4.20-5.40)
[2023-11-05 17:07] LABS: ALT (SGPT) 9 U/L (8-55); AST (SGOT) 15 U/L (5-34); Albumin 3.9 g/dL (3.5-5.0); Alkaline Phosphatase 77 U/L (40-110); Anion Gap 11 mmol/L (10-20); BUN (Urea Nitrogen) 11 mg/dL (7.0-18.7); Bilirubin, Total 0.4 mg/dL (0.2-1.2); Calc. Creatinine Clearance 0 mL/min (70-130); Calcium 9.8 mg/dL (7.8-10.44); Carbon Dioxide 28 mmol/L (22-29); Chloride 106 mmol/L (98-107); Estimated GFR 83; Globulin 3.7 g/dL (2.4-3.5); Glucose 92 mg/dL (70-105); Lipase 23 U/L (8-78); Magnesium 1.9 mg/dL (1.6-2.6); Potassium 3.8 mmol/L (3.5-5.1); Protein, Total 7.6 g/dL (6.0-8.3); Sodium 141 mmol/L (136-145)
[2023-11-05] MEDS ORDERED: Ketorolac Tromethamine 30 MG (1 mL) VIAL ONE (17:18)
[2023-11-05] MEDS ORDERED: Famotidine 20 MG TAB ONE (17:19)
[2023-11-05] MEDS ORDERED: Ondansetron PF 4 MG/2 ML Vial ONE (17:19)
[2023-11-05] MEDS ORDERED: Ondansetron ODT 4 MG TAB ONE (17:36)
== END 2023-11-05 17:41 | disposition home or self-care (01) ==
LOC: ERS 15:55
DX: K52.9 Noninfective gastroenteritis and colitis, unspecified (principal); M54.32 Sciatica, left side; E86.0 Dehydration; Z79.899 Other long term (current) drug therapy
CPT/HCPCS: 36415; 80053; 83690; 83735; 85025; 96372; 99283; J1885; J2405; Q0162